=== PATIENT | female | born 1950 | race Caucasian/White ===

== ENCOUNTER 2016-06-22 02:09 | Emergency (ER) | payer BC, MEDICARE, OTHER ==
[~2016-06-22] VITALS: Ht 157.5 cm; Wt 82.6 kg
[2016-06-22] MEDS ORDERED: BYST10TA2 PO (02:24)
[2016-06-22] MEDS ORDERED: HEPARIN DRIP 25,000 UNITS in APPROPRIATE DILUENT 1 EA IV SCH (02:38)
[2016-06-22] MEDS ORDERED: FAMOTIDINE 20 MG TAB PO ONE (02:45)
[2016-06-22] MEDS ORDERED: CLOPIDOGREL 300 MG TAB (PLAVIX) PO ONE (02:45)
[2016-06-22] MEDS ORDERED: NITROGLYCERIN 2% OINT 1 GM *U/D* PKT TOP ONE (02:45)
[2016-06-22] MEDS ORDERED: METOPROLOL TART 25 MG TABLET PO ONE (02:45)
[2016-06-22] MEDS ORDERED: HEPARIN SOD (PORCINE) 5000 UNITS/ML VIAL IV ONE (02:45)
[2016-06-22] MEDS ORDERED: ASPIRIN 81 MG CHEW TABLET PO ONE (02:45)
[2016-06-22] MEDS ORDERED: TENECTEPLASE 50 MG KIT (TNKase)(J3101) IV ONE ×2 (02:45)
[2016-06-22] MEDS: NS 1,000 ML IV SCH ×2 (02:46→02:52)
[2016-06-22 02:48] LABS: BASO % 0.5 % (0.0-1.0); EOS # 0.2 K/mm3 (0.0-0.50); EOS % 2.3 % (0.0-3.0); LARGE UNSTAINED CELL # 0.2 K/mm3 (0.0-0.4); LARGE UNSTAINED CELL % 2.6 % (0.0-4.0); LYMPH # 2.9 K/mm3 (1.5-4.5); LYMPH % 32.1 % (24.0-44.0); MEAN CORPUSCULAR HEMOGLOBIN 27.6 pg (27.0-33.0); MEAN CORPUSCULAR HGB CONC 33.7 g/dl (32.0-36.5); MEAN CORPUSCULAR VOLUME 81.7 fl (80.0-96.0); MONO # 0.7 K/mm3 (0.0-0.8); MONO % 7.7 % (0.0-5.0); NEUTROPHILS % 54.9 % (36.0-66.0); PLATELET COUNT, AUTOMATED 187 k/mm3 (150-450); RED CELL DISTRIBUTION WIDTH 14.1 % (11.5-14.5); WHITE BLOOD COUNT 9.1 K/mm3 (4.0-10.0)
[2016-06-22] MEDS: METOPROLOL 5 MG/5 ML VIAL IV SCH ×2 (02:51→03:02)
[2016-06-22 03:02] VITALS: BP 168/72
[2016-06-22 03:09] LABS: CALCIUM LEVEL 8.8 MG/DL (8.8-10.2); CREATININE FOR GFR 1.23 MG/DL (0.55-1.02); GLOMERULAR FILTRATION RATE 46.2 (>45)
[2016-06-22] MEDS ORDERED: CLOPIDOGREL 300 MG TAB (PLAVIX) ONE (03:18)
[2016-06-22] MEDS ORDERED: METOPROLOL TART 25 MG TABLET ONE (03:18)
[2016-06-22] MEDS ORDERED: HEPARIN SOD (PORCINE) 5000 UNITS/ML VIAL ONE (03:18)
[2016-06-22] MEDS ORDERED: ASPIRIN 81 MG CHEW TABLET ONE (03:18)
[2016-06-22] MEDS ORDERED: FAMOTIDINE 20 MG TAB ONE (03:18)
[2016-06-22] MEDS ORDERED: TENECTEPLASE 50 MG KIT (TNKase)(J3101) ONE (03:18)
[2016-06-22] MEDS ORDERED: HEPARIN 25,000 UNITS/250 ML D5W BAG (100 UNITS/ML) ONE (03:18)
[2016-06-22] MEDS ORDERED: METOPROLOL 5 MG/5 ML VIAL ONE (03:18)
[2016-06-22 03:21] VITALS: BP 173/81
--- NOTE | 2016-06-22 07:46 | REP ---
Clinical: Chest pain . Comparison: 03/26/2015 . Findings: The mediastinum and cardiac silhouette are stable and within normal limits for portable technique. The lung french demonstrate chronic changes without acute consolidation, effusion, or pneumothorax. Skeletal structures are intact. Impression: Chronic changes. No acute cardiopulmonary process. Signed by Manny Strange MD 06/22/2016 07:38 A
--- NOTE | 2016-06-22 10:38 | ECGEPIP ---
Stationary ECG Study [facility] - ED Test Date: 2016-06-22 Pat Name: SUKHJINDER DRIVER Department: Room: - Gender: F Adobe Maker: PerezB: 1950 Requested By: CARIN Galdamez Order Number: [id number] Reading MD: Jake Soto Measurements Intervals [place] Rate: 69 P: 28 IN: 203 QRS: -17 QRSD: 89 T: 66 QT: 379 QTc: 407 Interpretive Statements SINUS RHYTHM MARKED ST ELEVATION, CONSIDER INFERIOR INJURY ACUTE FL CLINICAL CORRELATION ADVISED NO PRIORS Electronically Signed On 06-22-2016 10:38:07 EDT by Jake Soto
== END 2016-06-22 03:33 | disposition short-term general hospital (02) ==
LOC: M ED 03:17
DX: I21.3 ST elevation (STEMI) myocardial infarction of unspecified site (principal); I10 Essential (primary) hypertension; Z79.899 Other long term (current) drug therapy
CPT/HCPCS: 36415; 71010; 80048; 82550; 82553; 85025; 85610; 85730; 93005; 93041; 94760; 96374; 96375; 96376; 99285; J3101

== ENCOUNTER → 2016-07-20 | Outpatient (CLI) | payer BC, MEDICARE, OTHER ==
[~2016-07-20] MED LIST: BYST10TA2 PO
[2016-07-20 09:19] LABS: BASO # 0.1 K/mm3 (0.0-0.2); EOS # 0.3 K/mm3 (0.0-0.50); LARGE UNSTAINED CELL # 0.2 K/mm3 (0.0-0.4); LARGE UNSTAINED CELL % 2.7 % (0.0-4.0); LYMPH # 1.7 K/mm3 (1.5-4.5); LYMPH % 28.4 % (24.0-44.0); MEAN CORPUSCULAR HEMOGLOBIN 28.8 pg (27.0-33.0); MEAN CORPUSCULAR HGB CONC 33.9 g/dl (32.0-36.5); MONO # 0.4 K/mm3 (0.0-0.8); MONO % 5.9 % (0.0-5.0); NEUTROPHILS # 3.4 K/mm3 (1.8-7.7); NEUTROPHILS % 57.1 % (36.0-66.0); PLATELET COUNT, AUTOMATED 169 k/mm3 (150-450); RED CELL DISTRIBUTION WIDTH 15.3 % (11.5-14.5)
[2016-07-20 09:42] LABS: BILIRUBIN,TOTAL 0.7 MG/DL (0.2-1.0); CREATININE FOR GFR 1.37 MG/DL (0.55-1.02); GLOMERULAR FILTRATION RATE 40.8 (>45); POTASSIUM SERUM 4.9 MEQ/L (3.5-5.1)
[2016-07-20 09:43] LABS: ALBUMIN 3.6 GM/DL (3.2-5.2); ALBUMIN/GLOBULIN RATIO 1.13 (1.00-1.93); TOTAL PROTEIN 6.8 GM/DL (6.4-8.2)
== END ==
LOC: M WUC 08:10
PROVIDERS: ATTEND Nurse Practitioner Family
DX: E78.5 Hyperlipidemia, unspecified (principal); I10 Essential (primary) hypertension

== ENCOUNTER 2016-08-09 14:45 | Outpatient (RCR) | payer BC, MEDICARE, OTHER | END 2016-08-25 | LOC: M CR 14:45 | PROVIDERS: ATTEND Nurse Practitioner Family | DX: I25.10 Atherosclerotic heart disease of native coronary artery without angina pectoris (principal) ==

== ENCOUNTER 2016-08-26 09:01 | Outpatient (RCR) | payer BC, MEDICARE, OTHER | END 2016-09-24 | LOC: M CR 09:01 | PROVIDERS: ATTEND Nurse Practitioner Family | DX: I25.10 Atherosclerotic heart disease of native coronary artery without angina pectoris (principal) ==

== ENCOUNTER → 2016-09-15 | Outpatient (CLI) | payer BC, MEDICARE, OTHER ==
[2016-09-15 20:06] LABS: CALCIUM LEVEL 9.7 MG/DL (8.8-10.2); CREATININE FOR GFR 1.33 MG/DL (0.55-1.02); GLOMERULAR FILTRATION RATE 42.2 (>45); POTASSIUM SERUM 4.7 MEQ/L (3.5-5.1)
== END ==
LOC: M WUC 17:08
PROVIDERS: ATTEND Nurse Practitioner Family
DX: C64.2 Malignant neoplasm of left kidney, except renal pelvis (principal)

== ENCOUNTER → 2017-03-07 | Outpatient (CLI) | payer BC, MEDICARE, OTHER ==
--- NOTE | 2017-03-07 17:14 | REP ---
Lumbar spine series: Five views. History: Low back pain for 1 year. Findings: Lumbar vertebral body heights are preserved. Alignment is normal. There is no evidence of spondylolysis or spondylolisthesis. Diffuse degenerative disc disease is noted most pronounced at L3-4 and L4-5. There is osteoarthritic facet narrowing hypertrophy and sclerosis bilaterally L4-5, L5-S1 and to some degree, L3-4. On the frontal radiograph there is a mild levoconvex curvature. Vascular calcifications noted. Sacrum and SI joints are intact. Psoas margins are symmetric. Impression: Degenerative spondylosis changes. Mild levoconvex curvature. Signed by Last Jay MD 03/07/2017 07:52 P
== END ==
LOC: M WUC 16:02
PROVIDERS: ATTEND Nurse Practitioner Family
DX: M54.5 Low back pain (principal)

== ENCOUNTER → 2017-08-27 | Outpatient (CLI) | payer BC, MEDICARE, OTHER ==
[2017-08-27 11:07] LABS: EOS # 0.2 10^3/uL (0.0-0.50); EOS % 4.6 % (0.0-3.0); HEMATOCRIT 43.4 % (36.0-47.0); IMMATURE GRANULOCYTE % 1.2 % (0-3.0); LYMPH # 0.9 10^3/uL (1.5-4.5); LYMPH % 21.2 % (24.0-44.0); MEAN CORPUSCULAR HEMOGLOBIN 26.8 pg (27.0-33.0); MEAN CORPUSCULAR HGB CONC 32.3 g/dl (32.0-36.5); MEAN CORPUSCULAR VOLUME 83.1 fl (80.0-96.0); MONO # 0.4 10^3/uL (0.0-0.8); MONO % 8.5 % (0.0-5.0); NEUTROPHILS # 2.6 10^3/uL (1.8-7.7); NEUTROPHILS % 63.5 % (36.0-66.0); PLATELET COUNT, AUTOMATED 178 10^3/uL (150-450); RED BLOOD COUNT 5.22 10^6/uL (4.00-5.40); RED CELL DISTRIBUTION WIDTH 14.7 % (11.5-14.5); WHITE BLOOD COUNT 4.1 10^3/uL (4.0-10.0)
[2017-08-27 11:29] LABS: ALBUMIN 3.6 GM/DL (3.2-5.2); ALBUMIN/GLOBULIN RATIO 1.09 (1.00-1.93); ALKALINE PHOSPHATASE 63 U/L (45-117); ALT/SGPT 64 U/L (12-78); ANION GAP 8 MEQ/L (8-16); AST/SGOT 116 U/L (7-37); BILIRUBIN,TOTAL 0.5 MG/DL (0.2-1.0); BLOOD UREA NITROGEN 20 MG/DL (7-18); CARBON DIOXIDE LEVEL 25 MEQ/L (21-32); CHLORIDE LEVEL 108 MEQ/L (98-107); CHOLESTEROL LEVEL 233 MG/DL (<200); CHOLESTEROL RISK RATIO 6.852 (<5); CREATININE FOR GFR 1.31 MG/DL (0.55-1.30); FREE T4 0.92 NG/DL (0.76-1.46); GLOMERULAR FILTRATION RATE 42.9 (>45); GLUCOSE, FASTING 102 MG/DL (70-100); HDL CHOLESTEROL 34 MG/DL (>40); IRON (FE) 57 UG/DL (50-170); NON-HDL-C 199 MG/DL; POTASSIUM SERUM 4.6 MEQ/L (3.5-5.1); SODIUM LEVEL 141 MEQ/L (136-145); TOTAL PROTEIN 6.9 GM/DL (6.4-8.2); TRIGLYCERIDES LEVEL 370 MG/DL (<150)
[2017-08-29 10:32] LABS: VITAMIN B12 LEVEL 217 PG/ML (247-911)
== END ==
LOC: M WUC 08:02
DX: I10 Essential (primary) hypertension (principal); E78.4 Other hyperlipidemia; R53.83 Other fatigue
CPT/HCPCS: 83540

== ENCOUNTER → 2017-09-06 | Outpatient (CLI) | payer BC, MEDICARE, OTHER ==
[2017-09-06 15:50] LABS: ALBUMIN 3.1 GM/DL (3.2-5.2); ALKALINE PHOSPHATASE 66 U/L (45-117); ALT/SGPT 67 U/L (12-78); ANION GAP 8 MEQ/L (8-16); AST/SGOT 136 U/L (7-37); BILIRUBIN,DIRECT < 0.1 MG/DL (0.0-0.2); BILIRUBIN,TOTAL 0.4 MG/DL (0.2-1.0); BLOOD UREA NITROGEN 22 MG/DL (7-18); CALCIUM LEVEL 8.6 MG/DL (8.8-10.2); CARBON DIOXIDE LEVEL 24 MEQ/L (21-32); CHLORIDE LEVEL 108 MEQ/L (98-107); CREATININE FOR GFR 1.17 MG/DL (0.55-1.30); GLOMERULAR FILTRATION RATE 48.8 (>45); GLUCOSE, FASTING 166 MG/DL (70-100); POTASSIUM SERUM 3.9 MEQ/L (3.5-5.1); SODIUM LEVEL 140 MEQ/L (136-145); TOTAL PROTEIN 6.2 GM/DL (6.4-8.2)
[2017-09-06 17:09] LABS: ERYTHROCYTE SEDIMENTATION RATE 30 mm/hr (0-30)
[2017-09-09 00:07] LABS: ANTINUCLEAR ANTIBODIES DIRECT Negative (Negative); Lyme Disease IgG/IgM Antibodie <0.91 ISR (0.00-0.90); Lyme Disease IgM Ab Quantitati <0.80 index (0.00-0.79)
== END ==
LOC: M WUC 13:15
DX: R53.83 Other fatigue (principal); E78.4 Other hyperlipidemia

== ENCOUNTER → 2017-09-26 | Outpatient (CLI) | payer BC, MEDICARE, OTHER ==
[2017-09-26 18:38] LABS: CPK CREATINE PHOSPHOKINASE 510 U/L (26-192)
[2017-09-26 18:38] LABS: RHEUMATOID FACTOR QUANT < 10.0 IU/ML (<15.0)
[2017-10-04 00:08] LABS: EBV PCR QUANTITATIVE Negative copies/mL (Negative)
== END ==
LOC: M WUC 15:54
DX: M79.1 Myalgia (principal); M25.50 Pain in unspecified joint
CPT/HCPCS: 82550

== ENCOUNTER → 2017-10-07 | Outpatient (CLI) | payer BC, MEDICARE, OTHER ==
[2017-10-07 16:36] LABS: BASO % 0.5 % (0.0-1.0); EOS # 0.1 10^3/uL (0.0-0.50); EOS % 1.6 % (0.0-3.0); HEMATOCRIT 42.8 % (36.0-47.0); HEMOGLOBIN 13.8 g/dl (12.0-15.5); IMMATURE GRANULOCYTE % 1.3 % (0-3.0); LYMPH # 1.2 10^3/uL (1.5-4.5); LYMPH % 13.8 % (24.0-44.0); MEAN CORPUSCULAR HEMOGLOBIN 26.6 pg (27.0-33.0); MEAN CORPUSCULAR HGB CONC 32.2 g/dl (32.0-36.5); MEAN CORPUSCULAR VOLUME 82.5 fl (80.0-96.0); MONO # 0.7 10^3/uL (0.0-0.8); MONO % 7.8 % (0.0-5.0); NEUTROPHILS # 6.5 10^3/uL (1.8-7.7); PLATELET COUNT, AUTOMATED 163 10^3/uL (150-450); RED BLOOD COUNT 5.19 10^6/uL (4.00-5.40); RED CELL DISTRIBUTION WIDTH 15.6 % (11.5-14.5); WHITE BLOOD COUNT 8.6 10^3/uL (4.0-10.0)
[2017-10-07 17:01] LABS: CPK CREATINE PHOSPHOKINASE 1789 U/L (26-192)
[2017-10-07 17:27] LABS: ERYTHROCYTE SEDIMENTATION RATE 21 mm/hr (0-30)
== END ==
LOC: M WUC 14:44
DX: I25.9 Chronic ischemic heart disease, unspecified (principal)
CPT/HCPCS: 82550

== ENCOUNTER → 2017-10-17 | Outpatient (CLI) | payer BC, MEDICARE, OTHER ==
[2017-10-17 19:56] LABS: GLOMERULAR FILTRATION RATE 52.4 (>45)
== END ==
LOC: M WUC 15:55
DX: M79.1 Myalgia (principal)
CPT/HCPCS: 82565

== ENCOUNTER → 2017-11-08 | Outpatient (REF) | payer BC, MEDICARE ==
[2017-11-08 18:06] LABS: COMPLEMENT C3 134 MG/DL (90-180); COMPLEMENT C4 35.3 MG/DL (10-40); CPK CREATINE PHOSPHOKINASE 421 U/L (26-192); LDH LACTATE DEHYDROGENASE 365 U/L (84-246)
[2017-11-09 09:18] LABS: HEPATITIS B SURFACE ANTIGEN NEGATIVE (NEGATIVE)
[2017-11-09 09:22] LABS: HEPATITIS B SURFACE ANTIBODY POSITIVE (POSITIVE)
[2017-11-09 09:41] LABS: HEPATITIS C VIRUS ABY INDEX 0.1 INDEX (<0.8)
[2017-11-09 11:03] LABS: HIV 1&2 SCREEN CENTAUR NEGATIVE (NEGATIVE)
[2017-11-10 19:47] LABS: APPEARANCE, URINE HAZY (CLEAR); BACTERIA, URINE AUTO 2+ (NEGATIVE); BILIRUBIN, URINE AUTO NEGATIVE (NEGATIVE); BLOOD, URINE BLOOD NEGATIVE (NEGATIVE); CALCIUM OXALATE CRYSTALS SMALL; COLOR, URINE YELLOW (YELLOW); GLUCOSE, URINE (UA) AUTO NEGATIVE (NEGATIVE); KETONE, URINE AUTO TRACE mg/dL (NEGATIVE); LEUKOCYTE ESTERASE, URINE AUTO NEGATIVE (NEGATIVE); MUCUS, URINE SMALL (NEGATIVE); NITRITE, URINE AUTO NEGATIVE (NEGATIVE); PROTEIN, URINE AUTO NEGATIVE (NEGATIVE); RBC, URINE AUTO 0 /HPF (0-3); SPECIFIC GRAVITY URINE AUTO 1.013 (1.002-1.035); SQUAMOUS EPITHELIAL CELL UR AU 3 /HPF (0-6); UROBILINOGEN, URINE AUTO 0.2 mg/dL (0.0-2.0); WBC, URINE AUTO 1 /HPF (0-3)
[2017-11-10 19:51] LABS: TOTAL PROTEIN,RANDOM URINE 13.1 MG/DL (0.0-12.0)
[2017-11-12 00:07] LABS: ALDOLASE 3.3 U/L (3.3-10.3); ANA (HEP2) Positive (.); ANTI CENTROMERE ANTIBODY <0.2 AI (0.0-0.9); ANTI DOUBLE STRAND-DNA AB 1 IU/mL (0-9); ANTI JO-1 ANTIBODIES <0.2 AI (0.0-0.9); ANTI SCLERODERMA ANTIBODIES <0.2 AI (0.0-0.9); HEPATITIS B CORE ANTIBODY IGG Negative (Negative); QUANTIFERON GOLD TB Negative (Negative); RNP ANTIBODY < 0.2 AI (0.0-0.9); SMITHS ANTIBODY < 0.2 AI (0.0-0.9); SSA SJOGRENS A <0.2 AI (0.0-0.9); SSB SJOGRENS B <0.2 AI (0.0-0.9); TB Test (QFT) Antigen 0.08 IU/mL (.); TB Test (QFT) Antigen Minus Ni 0.05 IU/mL (.); TB Test (QFT) Mitogen 7.96 IU/mL (.); TB Test (QFT) Nil 0.03 IU/mL (.)
[2017-11-12 00:07] LABS: CYCLIC CITRULLINATED PEPTIDE 8 units (0-19)
== END ==
LOC: M SFHCLERA 14:23
DX: M60.9 Myositis, unspecified (principal)
CPT/HCPCS: 82550

== ENCOUNTER 2017-12-02 01:06 | Inpatient (IN) | payer BC, MEDICARE, OTHER ==
[2017-12-02] MEDS: NS 1,000 ML IV ×3 (02:42→14:58)
[2017-12-02 02:43] LABS: BASO % 0.6 % (0.0-1.0); EOS # 0.1 10^3/uL (0.0-0.50); EOS % 1.9 % (0.0-3.0); HEMATOCRIT 32.6 % (36.0-47.0); HEMOGLOBIN 10.1 g/dl (12.0-15.5); IMMATURE GRANULOCYTE % 1.9 % (0-3.0); LYMPH # 0.5 10^3/uL (1.5-4.5); MEAN CORPUSCULAR HEMOGLOBIN 26.2 pg (27.0-33.0); MEAN CORPUSCULAR VOLUME 84.5 fl (80.0-96.0); MONO # 0.6 10^3/uL (0.0-0.8); MONO % 11.4 % (0.0-5.0); NEUTROPHILS % 75.2 % (36.0-66.0); PLATELET COUNT, AUTOMATED 147 10^3/uL (150-450); RED BLOOD COUNT 3.86 10^6/uL (4.00-5.40); RED CELL DISTRIBUTION WIDTH 18.6 % (11.5-14.5); WHITE BLOOD COUNT 5.3 10^3/uL (4.0-10.0)
[2017-12-02 03:11] LABS: ALBUMIN 2.8 GM/DL (3.2-5.2); ALBUMIN/GLOBULIN RATIO 1.04 (1.00-1.93); ALKALINE PHOSPHATASE 52 U/L (45-117); ALT/SGPT 32 U/L (12-78); ANION GAP 12 MEQ/L (8-16); AST/SGOT 60 U/L (7-37); BILIRUBIN,DIRECT 0.3 MG/DL (0.0-0.2); BLOOD UREA NITROGEN 32 MG/DL (7-18); CARBON DIOXIDE LEVEL 23 MEQ/L (21-32); CHLORIDE LEVEL 110 MEQ/L (98-107); CPK CREATINE PHOSPHOKINASE 133 U/L (26-192); CREATININE FOR GFR 0.97 MG/DL (0.55-1.30); GLOMERULAR FILTRATION RATE > 60.0 (>45); GLUCOSE, FASTING 111 MG/DL (70-100); POTASSIUM SERUM 3.7 MEQ/L (3.5-5.1); SODIUM LEVEL 145 MEQ/L (136-145); TOTAL PROTEIN 5.5 GM/DL (6.4-8.2); TROPONIN I < 0.02 NG/ML (< 0.10)
[2017-12-02 03:16] LABS: CK-MB VALUE MASS 4.3 NG/ML (<3.6); MB/CK RELATIVE INDEX 3.23 (< OR =4)
[2017-12-02] MEDS ORDERED: POLYVINYL ALCOHOL OPHTH SOLN 15 ML(LIQUITEARS) OU (03:45)
[2017-12-02] MEDS: ENOXAPARIN 40 MG/0.4 ML SYRINGE (J1650) SC (08:52)
[2017-12-02] MEDS: ASPIRIN 81 MG ENTERIC TAB PO (08:52)
[2017-12-02] MEDS ORDERED: CARVedilol 12.5 MG TAB PO (09:00)
[2017-12-02 09:01] LABS: ERYTHROCYTE SEDIMENTATION RATE 64 mm/hr (0-30)
[2017-12-02 12:50] LABS: FERRITIN 1294 NG/ML (8-252)
[2017-12-02 12:58] LABS: VITAMIN B12 LEVEL 370 PG/ML (247-911)
[2017-12-02 12:59] LABS: FOLATE 13.6 NG/ML (>5.4)
[2017-12-02] MEDS ORDERED: VARIBAR PUDDING 40% w/v 230ML TUBE As Ordered (13:38)
[2017-12-02] MEDS ORDERED: VARIBAR NECTAR 40% w/v 240ML SUSP BTL As Ordered (13:38)
[2017-12-02] MEDS ORDERED: E-Z-PAQUE 96% w/w SUSP 176GM BTL As Ordered (13:38)
[2017-12-02] MEDS: methylPREDNISolone INJ 125 MG/2 ML VIAL (J2930) IV (16:30)
[2017-12-02] MEDS: methylPREDNISolone 500 MG, VIAL MATE ADAPTER 1 EACH in D5W 250 ML IV (18:29)
[2017-12-02] MEDS ORDERED: ONDANSETRON 4 MG ORAL DISINTEGRATING TAB (Q0162 PER 1MG) PO (19:30)
[2017-12-02] MEDS: ONDANSETRON 4MG/2ML VIAL (J2405) IV (21:27)
[2017-12-02] MEDS: METOPROLOL TART 50 MG TAB PO (21:27)
[2017-12-03] MEDS: NS 1,000 ML IV (00:59)
[2017-12-03] MEDS: ONDANSETRON 4MG/2ML VIAL (J2405) IV ×4 (03:00→21:00)
[2017-12-03 05:59] LABS: HEMOGLOBIN 10.1 g/dl (12.0-15.5); MEAN CORPUSCULAR HEMOGLOBIN 26.2 pg (27.0-33.0); MEAN CORPUSCULAR HGB CONC 31.6 g/dl (32.0-36.5); MEAN CORPUSCULAR VOLUME 83.1 fl (80.0-96.0); PLATELET COUNT, AUTOMATED 136 10^3/uL (150-450); RED BLOOD COUNT 3.85 10^6/uL (4.00-5.40); RED CELL DISTRIBUTION WIDTH 18.6 % (11.5-14.5); WHITE BLOOD COUNT 2.9 10^3/uL (4.0-10.0)
[2017-12-03 06:13] LABS: ALBUMIN 2.7 GM/DL (3.2-5.2); ALBUMIN/GLOBULIN RATIO 0.77 (1.00-1.93); ALKALINE PHOSPHATASE 63 U/L (45-117); ALT/SGPT 32 U/L (12-78); ANION GAP 12 MEQ/L (8-16); AST/SGOT 61 U/L (7-37); BLOOD UREA NITROGEN 27 MG/DL (7-18); CALCIUM LEVEL 8.9 MG/DL (8.8-10.2); CARBON DIOXIDE LEVEL 19 MEQ/L (21-32); CHLORIDE LEVEL 113 MEQ/L (98-107); CPK CREATINE PHOSPHOKINASE 137 U/L (26-192); CREATININE FOR GFR 0.91 MG/DL (0.55-1.30); GLOMERULAR FILTRATION RATE > 60.0 (>45); GLUCOSE, FASTING 143 MG/DL (70-100); IRON (FE) 40 UG/DL (50-170); PERCENT SATURATION 24.8 % (13.2-45.0); POTASSIUM SERUM 3.9 MEQ/L (3.5-5.1); SODIUM LEVEL 144 MEQ/L (136-145); TOTAL IRON BINDING CAPACITY 161 UG/DL (250-450); TOTAL PROTEIN 6.2 GM/DL (6.4-8.2)
[2017-12-03] MEDS: ENOXAPARIN 40 MG/0.4 ML SYRINGE (J1650) SC (09:00)
[2017-12-03] MEDS: ASPIRIN 81 MG ENTERIC TAB PO (09:48)
[2017-12-03] MEDS: PANTOPRAZOLE 40MG INJ (PROTONIX) (C9113) IV (09:48)
[2017-12-03] MEDS: D5W/0.45% SODIUM CHLORIDE 1,000 ML IV ×2 (09:48→23:56)
[2017-12-03] MEDS: methylPREDNISolone 500 MG, VIAL MATE ADAPTER 1 EACH in D5W 250 ML IV (17:30)
[2017-12-03] MEDS: METOPROLOL TART 50 MG TAB PO (18:14)
[2017-12-03] MEDS: HYDROCORTISONE 2.5% 20GM OINTMENT TOP (22:16)
[2017-12-03] MEDS: BETAMETHASONE VAL 0.1% OINT 15 GM TOP (22:16)
[2017-12-04] MEDS: ONDANSETRON 4MG/2ML VIAL (J2405) IV ×4 (02:45→20:17)
[2017-12-04 06:21] LABS: MEAN CORPUSCULAR HEMOGLOBIN 26.6 pg (27.0-33.0); MEAN CORPUSCULAR VOLUME 85.8 fl (80.0-96.0); PLATELET COUNT, AUTOMATED 115 10^3/uL (150-450); RED BLOOD COUNT 3.38 10^6/uL (4.00-5.40); RED CELL DISTRIBUTION WIDTH 18.6 % (11.5-14.5); WHITE BLOOD COUNT 5.4 10^3/uL (4.0-10.0)
[2017-12-04 06:40] LABS: ALBUMIN 2.5 GM/DL (3.2-5.2); ALBUMIN/GLOBULIN RATIO 0.83 (1.00-1.93); ALKALINE PHOSPHATASE 57 U/L (45-117); ALT/SGPT 36 U/L (12-78); ANION GAP 9 MEQ/L (8-16); AST/SGOT 55 U/L (7-37); BLOOD UREA NITROGEN 25 MG/DL (7-18); CALCIUM LEVEL 8.7 MG/DL (8.8-10.2); CARBON DIOXIDE LEVEL 21 MEQ/L (21-32); CHLORIDE LEVEL 112 MEQ/L (98-107); CPK CREATINE PHOSPHOKINASE 117 U/L (26-192); CREATININE FOR GFR 0.85 MG/DL (0.55-1.30); GLOMERULAR FILTRATION RATE > 60.0 (>45); GLUCOSE, FASTING 169 MG/DL (70-100); POTASSIUM SERUM 3.9 MEQ/L (3.5-5.1); SODIUM LEVEL 142 MEQ/L (136-145); TOTAL PROTEIN 5.5 GM/DL (6.4-8.2)
[2017-12-04 09:06] LABS: ERYTHROCYTE SEDIMENTATION RATE 54 mm/hr (0-30)
[2017-12-04] MEDS: ASPIRIN 81 MG ENTERIC TAB PO (10:16)
[2017-12-04] MEDS: PANTOPRAZOLE 40MG INJ (PROTONIX) (C9113) IV (10:16)
[2017-12-04] MEDS: ENOXAPARIN 40 MG/0.4 ML SYRINGE (J1650) SC (10:17)
[2017-12-04] MEDS: HYDROCORTISONE 2.5% 20GM OINTMENT TOP ×2 (10:18→20:30)
[2017-12-04] MEDS: BETAMETHASONE VAL 0.1% OINT 15 GM TOP ×2 (10:18→20:39)
[2017-12-04] MEDS ORDERED: ISOVUE-370 76% 100ML VIAL (Q9967) As Ordered (15:04)
[2017-12-04] MEDS: GASTROGRAFIN SOLUTION 30ML PO ×2 (15:30→15:59)
[2017-12-04] MEDS: SCOPOLAMINE 1MG TRANSDERMAL PATCH TOP (15:38)
[2017-12-04] MEDS: methylPREDNISolone 500 MG, VIAL MATE ADAPTER 1 EACH in D5W 250 ML IV (17:39)
[2017-12-04] MEDS: D5W/0.45% SODIUM CHLORIDE 1,000 ML IV (18:54)
[2017-12-04] MEDS: PYRIDOSTIGMINE INJ 10 MG/2 ML AMP IV (19:38)
[2017-12-05] MEDS: PYRIDOSTIGMINE INJ 10 MG/2 ML AMP IV ×4 (00:32→18:18)
[2017-12-05] MEDS: ONDANSETRON 4MG/2ML VIAL (J2405) IV ×4 (02:45→19:40)
[2017-12-05 04:44] LABS: HEMATOCRIT 28.2 % (36.0-47.0); HEMOGLOBIN 8.9 g/dl (12.0-15.5); MEAN CORPUSCULAR HEMOGLOBIN 26.5 pg (27.0-33.0); MEAN CORPUSCULAR HGB CONC 31.6 g/dl (32.0-36.5); MEAN CORPUSCULAR VOLUME 83.9 fl (80.0-96.0); PLATELET COUNT, AUTOMATED 109 10^3/uL (150-450); RED BLOOD COUNT 3.36 10^6/uL (4.00-5.40); WHITE BLOOD COUNT 5.4 10^3/uL (4.0-10.0)
[2017-12-05 05:02] LABS: ALBUMIN 2.6 GM/DL (3.2-5.2); ALBUMIN/GLOBULIN RATIO 0.84 (1.00-1.93); ALKALINE PHOSPHATASE 55 U/L (45-117); ALT/SGPT 38 U/L (12-78); ANION GAP 9 MEQ/L (8-16); AST/SGOT 54 U/L (7-37); BLOOD UREA NITROGEN 22 MG/DL (7-18); CALCIUM LEVEL 8.8 MG/DL (8.8-10.2); CARBON DIOXIDE LEVEL 21 MEQ/L (21-32); CHLORIDE LEVEL 110 MEQ/L (98-107); CPK CREATINE PHOSPHOKINASE 91 U/L (26-192); CREATININE FOR GFR 0.84 MG/DL (0.55-1.30); GLOMERULAR FILTRATION RATE > 60.0 (>45); GLUCOSE, FASTING 170 MG/DL (70-100); SODIUM LEVEL 140 MEQ/L (136-145); TOTAL PROTEIN 5.7 GM/DL (6.4-8.2)
[2017-12-05] MEDS: ENOXAPARIN 40 MG/0.4 ML SYRINGE (J1650) SC (09:00)
[2017-12-05] MEDS: predniSONE 20 MG TAB PO ×3 (09:00→11:55)
[2017-12-05] MEDS: ASPIRIN 81 MG ENTERIC TAB PO (09:00)
[2017-12-05] MEDS: D5W/0.45% SODIUM CHLORIDE 1,000 ML IV ×2 (09:34→22:55)
[2017-12-05] MEDS: PANTOPRAZOLE 40MG INJ (PROTONIX) (C9113) IV (09:35)
[2017-12-05] MEDS: BETAMETHASONE VAL 0.1% OINT 15 GM TOP ×2 (09:36→20:00)
[2017-12-05] MEDS: HYDROCORTISONE 2.5% 20GM OINTMENT TOP ×2 (09:36→20:01)
[2017-12-05] MEDS: methylPREDNISolone INJ 40 MG/1 ML VIAL (J2920) IV (12:22)
[2017-12-06 00:56] LABS: FIBRINOGEN 283 MG/DL (221-452)
[2017-12-06 01:10] LABS: ERYTHROCYTE SEDIMENTATION RATE 49 mm/hr (0-30)
[2017-12-06 01:15] LABS: C REACTIVE PROTEIN QUANTITATIV < 0.30 MG/DL (0.00-0.30); CHOLESTEROL LEVEL 194 MG/DL (<200); CHOLESTEROL RISK RATIO 7.185 (<5); FERRITIN 1798 NG/ML (8-252); HDL CHOLESTEROL 27 MG/DL (>40); LDL CHOLESTEROL 106 MG/DL (<100); NON-HDL-C 167 MG/DL; TRIGLYCERIDES LEVEL 303 MG/DL (<150)
[2017-12-06 05:24] LABS: HEMATOCRIT 28.3 % (36.0-47.0); HEMOGLOBIN 8.7 g/dl (12.0-15.5); MEAN CORPUSCULAR HEMOGLOBIN 26.2 pg (27.0-33.0); MEAN CORPUSCULAR HGB CONC 30.7 g/dl (32.0-36.5); MEAN CORPUSCULAR VOLUME 85.2 fl (80.0-96.0); PLATELET COUNT, AUTOMATED 110 10^3/uL (150-450); RED BLOOD COUNT 3.32 10^6/uL (4.00-5.40); RED CELL DISTRIBUTION WIDTH 18.7 % (11.5-14.5); WHITE BLOOD COUNT 5.9 10^3/uL (4.0-10.0)
[2017-12-06 06:01] LABS: ESTIMATED AVERAGE GLUCOSE 94 MG/DL (60-110); HEMOGLOBIN A1c 4.9 %
[2017-12-06 06:03] LABS: ALBUMIN 2.4 GM/DL (3.2-5.2); ALKALINE PHOSPHATASE 52 U/L (45-117); ALT/SGPT 44 U/L (12-78); ANION GAP 12 MEQ/L (8-16); AST/SGOT 53 U/L (7-37); BILIRUBIN,TOTAL 0.8 MG/DL (0.2-1.0); BLOOD UREA NITROGEN 18 MG/DL (7-18); CALCIUM LEVEL 8.3 MG/DL (8.8-10.2); CARBON DIOXIDE LEVEL 18 MEQ/L (21-32); CHLORIDE LEVEL 109 MEQ/L (98-107); CPK CREATINE PHOSPHOKINASE 66 U/L (26-192); CREATININE FOR GFR 0.94 MG/DL (0.55-1.30); GLOMERULAR FILTRATION RATE > 60.0 (>45); GLUCOSE, FASTING 115 MG/DL (70-100); SODIUM LEVEL 139 MEQ/L (136-145); TOTAL PROTEIN 5.4 GM/DL (6.4-8.2)
[2017-12-06] MEDS ORDERED: LIDOCAINE 1% MDV 20ML VIAL As Ordered ×2 (07:29→15:37)
[2017-12-06] MEDS ORDERED: fentaNYL 100 MCG/2 ML INJECTION (J3010) As Ordered (07:29)
[2017-12-06] MEDS ORDERED: POTASSIUM CHLORIDE 10 MEQ SR TABLET PO (08:00)
[2017-12-06] MEDS: fentaNYL 100 MCG/2 ML INJECTION (J3010) IV (08:15)
[2017-12-06] MEDS: LIDOCAINE 1% MDV 20ML VIAL SC (08:15)
[2017-12-06] MEDS ORDERED: KETOROLAC 30 MG/ML VIAL (J1885) IV (08:15)
[2017-12-06] MEDS ORDERED: MORPHINE 4 MG/ML 1ML VIAL/SYRINGE (J2270) IV (08:15)
[2017-12-06] MEDS: ENOXAPARIN 40 MG/0.4 ML SYRINGE (J1650) SC (09:00)
[2017-12-06] MEDS: ASPIRIN 81 MG ENTERIC TAB PO (09:00)
[2017-12-06] MEDS ORDERED: methylPREDNISolone INJ 125 MG/2 ML VIAL (J2930) IV (09:00)
[2017-12-06] MEDS ORDERED: IMMUNE GLOBULIN 10% 10GM 100ML 30 GM in APPROPRIATE DILUENT 1 EA IV (09:00)
[2017-12-06] MEDS: KCL 10MEQ/100ML SWI (KRUN) 10 MEQ in APPROPRIATE DILUENT 1 EA IV ×4 (09:23→17:07)
[2017-12-06] MEDS: KCL 40MEQ IN D5/0.45NS 1000ML 1,000 ML IV (09:23)
[2017-12-06] MEDS: BETAMETHASONE VAL 0.1% OINT 15 GM TOP ×2 (09:24→20:16)
[2017-12-06] MEDS: HYDROCORTISONE 2.5% 20GM OINTMENT TOP ×2 (09:24→20:15)
[2017-12-06 10:00] LABS: MAGNESIUM LEVEL 2.1 MG/DL (1.8-2.4)
[2017-12-06 11:39] LABS: SLIDE REVIEW Report; SOURCE PERIPHERAL SMEAR
[2017-12-06 12:09] LABS: REASON FOR REVIEW PLATELET MORPHOLOGY
[2017-12-06] MEDS: methylPREDNISolone 1,000 MG, VIAL MATE ADAPTER 1 EACH in D5W 250 ML IV (14:15)
[2017-12-06] MEDS: IMMUNE GLOBULIN 10% 10GM 100ML 10 GM in APPROPRIATE DILUENT 1 EA IV (17:25)
[2017-12-06] MEDS: SODIUM CHLORIDE 0.9% INJ 10 ML SYR IV (18:42)
[2017-12-06] MEDS: IMMUNE GLOBULIN 10% 20GM 200ML 20 GM in APPROPRIATE DILUENT 1 EA IV (19:35)
[2017-12-07] MEDS: KCL 40MEQ IN D5/0.45NS 1000ML 1,000 ML IV ×2 (00:40→09:29)
[2017-12-07] MEDS: SODIUM CHLORIDE 0.9% INJ 10 ML SYR IV ×2 (05:30→18:16)
[2017-12-07 05:43] LABS: HEMATOCRIT 26.8 % (36.0-47.0); HEMOGLOBIN 8.4 g/dl (12.0-15.5); MEAN CORPUSCULAR HEMOGLOBIN 26.5 pg (27.0-33.0); MEAN CORPUSCULAR HGB CONC 31.3 g/dl (32.0-36.5); MEAN CORPUSCULAR VOLUME 84.5 fl (80.0-96.0); PLATELET COUNT, AUTOMATED 102 10^3/uL (150-450); RED BLOOD COUNT 3.17 10^6/uL (4.00-5.40); RED CELL DISTRIBUTION WIDTH 18.5 % (11.5-14.5); WHITE BLOOD COUNT 3.6 10^3/uL (4.0-10.0)
[2017-12-07 06:19] LABS: ALBUMIN 2.4 GM/DL (3.2-5.2); ALBUMIN/GLOBULIN RATIO 0.75 (1.00-1.93); ALKALINE PHOSPHATASE 52 U/L (45-117); ALT/SGPT 55 U/L (12-78); ANION GAP 8 MEQ/L (8-16); AST/SGOT 60 U/L (7-37); BILIRUBIN,TOTAL 0.8 MG/DL (0.2-1.0); BLOOD UREA NITROGEN 12 MG/DL (7-18); CALCIUM LEVEL 8.1 MG/DL (8.8-10.2); CARBON DIOXIDE LEVEL 21 MEQ/L (21-32); CHLORIDE LEVEL 110 MEQ/L (98-107); CPK CREATINE PHOSPHOKINASE 58 U/L (26-192); GLOMERULAR FILTRATION RATE > 60.0 (>45); GLUCOSE, FASTING 116 MG/DL (70-100); POTASSIUM SERUM 4.2 MEQ/L (3.5-5.1); SODIUM LEVEL 139 MEQ/L (136-145); TOTAL PROTEIN 5.6 GM/DL (6.4-8.2)
[2017-12-07 07:59] LABS: LDH LACTATE DEHYDROGENASE 322 U/L (84-246)
[2017-12-07 08:45] LABS: INR 1.25; PROTHROMBIN TIME 15.9 SECONDS (12.1-14.4)
[2017-12-07 08:46] LABS: FIBRINOGEN 229 MG/DL (221-452); PARTIAL THROMBOPLASTIN TIME 28.1 SECONDS (25.4-37.6)
[2017-12-07] MEDS: ENOXAPARIN 40 MG/0.4 ML SYRINGE (J1650) SC (09:00)
[2017-12-07] MEDS: ASPIRIN 81 MG ENTERIC TAB PO (09:00)
[2017-12-07] MEDS: SCOPOLAMINE 1MG TRANSDERMAL PATCH TOP (09:00)
[2017-12-07] MEDS: IMMUNE GLOBULIN 10% 10GM 100ML 10 GM in APPROPRIATE DILUENT 1 EA IV (09:32)
[2017-12-07] MEDS: BETAMETHASONE VAL 0.1% OINT 15 GM TOP ×2 (09:33→21:03)
[2017-12-07] MEDS: HYDROCORTISONE 2.5% 20GM OINTMENT TOP ×2 (09:33→21:02)
[2017-12-07] MEDS: methylPREDNISolone INJ 40 MG/1 ML VIAL (J2920) IV ×2 (09:46→21:02)
[2017-12-07 11:01] LABS: RETIC HEMOGLOBIN EQUIVALENT 33.6 pg (24-36); RETICULOCYTE # 89.4 10^9/L (17-77); RETICULOCYTE % 2.8 % (0.5-1.5)
[2017-12-07] MEDS: IMMUNE GLOBULIN 10% 20GM 200ML 20 GM in APPROPRIATE DILUENT 1 EA IV (11:14)
[2017-12-07] MEDS: ONDANSETRON 4MG/2ML VIAL (J2405) IV (18:16)
[2017-12-08 06:25] LABS: HEMATOCRIT 26.5 % (36.0-47.0); HEMOGLOBIN 8.4 g/dl (12.0-15.5); MEAN CORPUSCULAR HEMOGLOBIN 26.8 pg (27.0-33.0); MEAN CORPUSCULAR HGB CONC 31.7 g/dl (32.0-36.5); MEAN CORPUSCULAR VOLUME 84.7 fl (80.0-96.0); RED BLOOD COUNT 3.13 10^6/uL (4.00-5.40); RED CELL DISTRIBUTION WIDTH 18.7 % (11.5-14.5)
[2017-12-08] MEDS: SODIUM CHLORIDE 0.9% INJ 10 ML SYR IV ×2 (06:27→17:29)
[2017-12-08 06:54] LABS: C REACTIVE PROTEIN QUANTITATIV < 0.30 MG/DL (0.00-0.30)
[2017-12-08 06:56] LABS: IMMATURE PLATELET FRACTION % 7.8 % (0.0-9.6); PLATELET COUNT, AUTOMATED 88 10^3/uL (150-450)
[2017-12-08 06:57] LABS: ALBUMIN 2.3 GM/DL (3.2-5.2); ALBUMIN/GLOBULIN RATIO 0.58 (1.00-1.93); ALKALINE PHOSPHATASE 54 U/L (45-117); ALT/SGPT 49 U/L (12-78); ANION GAP 6 MEQ/L (8-16); AST/SGOT 45 U/L (7-37); BILIRUBIN,TOTAL 0.8 MG/DL (0.2-1.0); BLOOD UREA NITROGEN 13 MG/DL (7-18); CALCIUM LEVEL 8.1 MG/DL (8.8-10.2); CARBON DIOXIDE LEVEL 26 MEQ/L (21-32); CHLORIDE LEVEL 105 MEQ/L (98-107); CPK CREATINE PHOSPHOKINASE 50 U/L (26-192); CREATININE FOR GFR 0.73 MG/DL (0.55-1.30); GLOMERULAR FILTRATION RATE > 60.0 (>45); GLUCOSE, FASTING 114 MG/DL (70-100); POTASSIUM SERUM 3.9 MEQ/L (3.5-5.1); SODIUM LEVEL 137 MEQ/L (136-145); TOTAL PROTEIN 6.3 GM/DL (6.4-8.2)
[2017-12-08] MEDS: ASPIRIN 81 MG ENTERIC TAB PO (07:40)
[2017-12-08] MEDS: ENOXAPARIN 40 MG/0.4 ML SYRINGE (J1650) SC (07:41)
[2017-12-08] MEDS: LACTOBACILLUS RHAMNOSUS POWDER PACKET(CULTURELLE) PO (09:00)
[2017-12-08] MEDS: BETAMETHASONE VAL 0.1% OINT 15 GM TOP ×2 (09:16→22:13)
[2017-12-08] MEDS: methylPREDNISolone INJ 40 MG/1 ML VIAL (J2920) IV ×2 (09:16→22:12)
[2017-12-08] MEDS: HYDROCORTISONE 2.5% 20GM OINTMENT TOP ×2 (09:16→22:14)
[2017-12-08] MEDS: IMMUNE GLOBULIN 10% 10GM 100ML 10 GM in APPROPRIATE DILUENT 1 EA IV (09:18)
[2017-12-08] MEDS: IMMUNE GLOBULIN 10% 20GM 200ML 20 GM in APPROPRIATE DILUENT 1 EA IV (10:30)
[2017-12-08] MEDS: FUROSEMIDE 40 MG/4 ML VIAL (J1940) IV (12:00)
[2017-12-08] MEDS: FAT EMULSION IV 20% 500 ML IV (17:30)
[2017-12-08] MEDS: AMINO AC/ELECTROLYTE/DEX/CALC 2,000 ML IV (17:30)
[2017-12-08 17:42] LABS: BEDSIDE GLUCOSE 114 MG/DL (80-115)
[2017-12-08] MEDS: HumaLOG INSULIN (NovoLOG) PER UNIT SC (18:15)
[2017-12-09 00:25] LABS: BEDSIDE GLUCOSE 165 MG/DL (80-115)
[2017-12-09] MEDS: HumaLOG INSULIN (NovoLOG) PER UNIT SC ×4 (00:34→21:37)
[2017-12-09] MEDS: SODIUM CHLORIDE 0.9% INJ 10 ML SYR IV ×3 (06:00→17:46)
[2017-12-09 06:42] LABS: HEMATOCRIT 28.3 % (36.0-47.0); HEMOGLOBIN 9.1 g/dl (12.0-15.5); MEAN CORPUSCULAR HEMOGLOBIN 26.8 pg (27.0-33.0); MEAN CORPUSCULAR HGB CONC 32.2 g/dl (32.0-36.5); MEAN CORPUSCULAR VOLUME 83.5 fl (80.0-96.0); PLATELET COUNT, AUTOMATED 106 10^3/uL (150-450); RED BLOOD COUNT 3.39 10^6/uL (4.00-5.40); RED CELL DISTRIBUTION WIDTH 18.6 % (11.5-14.5); WHITE BLOOD COUNT 5.6 10^3/uL (4.0-10.0)
[2017-12-09 06:52] LABS: FIBRINOGEN 237 MG/DL (221-452)
[2017-12-09 06:57] LABS: ERYTHROCYTE SEDIMENTATION RATE 63 mm/hr (0-30)
[2017-12-09 07:05] LABS: C REACTIVE PROTEIN QUANTITATIV 0.31 MG/DL (0.00-0.30)
[2017-12-09 07:08] LABS: FERRITIN 1726 NG/ML (8-252)
[2017-12-09 07:13] LABS: ALBUMIN 2.5 GM/DL (3.2-5.2); ALBUMIN/GLOBULIN RATIO 0.48 (1.00-1.93); ALKALINE PHOSPHATASE 50 U/L (45-117); ALT/SGPT 48 U/L (12-78); ANION GAP 11 MEQ/L (8-16); AST/SGOT 43 U/L (7-37); BILIRUBIN,TOTAL 0.8 MG/DL (0.2-1.0); BLOOD UREA NITROGEN 20 MG/DL (7-18); CALCIUM LEVEL 8.5 MG/DL (8.8-10.2); CARBON DIOXIDE LEVEL 24 MEQ/L (21-32); CHLORIDE LEVEL 99 MEQ/L (98-107); CPK CREATINE PHOSPHOKINASE 65 U/L (26-192); CREATININE FOR GFR 0.98 MG/DL (0.55-1.30); GLOMERULAR FILTRATION RATE 59.9 (>45); GLUCOSE, FASTING 171 MG/DL (70-100); POTASSIUM SERUM 3.5 MEQ/L (3.5-5.1); SODIUM LEVEL 134 MEQ/L (136-145); TOTAL PROTEIN 7.7 GM/DL (6.4-8.2)
[2017-12-09] MEDS: LACTOBACILLUS RHAMNOSUS POWDER PACKET(CULTURELLE) PO (09:00)
[2017-12-09] MEDS: ENOXAPARIN 40 MG/0.4 ML SYRINGE (J1650) SC (09:00)
[2017-12-09] MEDS: ASPIRIN 81 MG ENTERIC TAB PO (09:00)
[2017-12-09] MEDS: ONDANSETRON 4MG/2ML VIAL (J2405) IV ×2 (09:37→18:55)
[2017-12-09 10:16] LABS: ACETYLCHOLINE RCPTOR BLOCK AB 21 % (0-25); ACETYLCHOLINE RCPTOR MODULATIN <12 % (0-20); ALDOLASE 5.5 U/L (3.3-10.3); STRIATIONAL ANTIBODIES Negative (Neg:<1:40); VGCC ANTIBODY Negative (Negative)
[2017-12-09 10:16] LABS: ACETYLCHOLINE RCPTOR BINDING A < 0.03 nmol/L (0.00-0.24)
[2017-12-09] MEDS: methylPREDNISolone INJ 40 MG/1 ML VIAL (J2920) IV ×2 (10:51→20:08)
[2017-12-09] MEDS: BETAMETHASONE VAL 0.1% OINT 15 GM TOP ×2 (10:51→21:35)
[2017-12-09] MEDS: HYDROCORTISONE 2.5% 20GM OINTMENT TOP ×2 (10:51→21:35)
[2017-12-09] MEDS: IMMUNE GLOBULIN 10% 10GM 100ML 10 GM in APPROPRIATE DILUENT 1 EA IV (10:53)
[2017-12-09] MEDS: KCL 10MEQ/100ML SWI (KRUN) 10 MEQ in APPROPRIATE DILUENT 1 EA IV ×2 (11:00→15:28)
[2017-12-09 12:03] LABS: BEDSIDE GLUCOSE 148 MG/DL (80-115)
[2017-12-09] MEDS: IMMUNE GLOBULIN 10% 20GM 200ML 20 GM in APPROPRIATE DILUENT 1 EA IV (12:50)
[2017-12-09 14:14] LABS: HAPTOGLOBIN 113 mg/dL (34-200)
[2017-12-09] MEDS ORDERED: KCL 10MEQ IN STERILE WATER 100ML As Ordered (16:28)
[2017-12-09 18:53] LABS: BEDSIDE GLUCOSE 156 MG/DL (80-115)
[2017-12-09] MEDS: AMINO AC/ELECTROLYTE/DEX/CALC 2,000 ML IV (20:08)
[2017-12-09] MEDS: FAT EMULSION IV 20% 500 ML IV (20:08)
[2017-12-09] MEDS: ACETAMINOPH W/CODEINE #3 TAB UD PO (20:09)
[2017-12-10] MEDS: HumaLOG INSULIN (NovoLOG) PER UNIT SC ×4 (00:08→17:54)
[2017-12-10] MEDS: SODIUM CHLORIDE 0.9% INJ 10 ML SYR IV ×2 (05:38→17:55)
[2017-12-10 06:22] LABS: FIBRINOGEN 220 MG/DL (221-452)
[2017-12-10 06:41] LABS: C REACTIVE PROTEIN QUANTITATIV < 0.30 MG/DL (0.00-0.30); FERRITIN 1802 NG/ML (8-252)
[2017-12-10 06:59] LABS: BEDSIDE GLUCOSE 141 MG/DL (80-115)
[2017-12-10 07:15] LABS: ANTI-HMGCR AB IgG <20 Units (<20)
[2017-12-10 07:31] LABS: ERYTHROCYTE SEDIMENTATION RATE 64 mm/hr (0-30)
[2017-12-10] MEDS: ASPIRIN 81 MG ENTERIC TAB PO (07:53)
[2017-12-10] MEDS: LACTOBACILLUS RHAMNOSUS POWDER PACKET(CULTURELLE) PO (07:53)
[2017-12-10 08:16] LABS: HEMATOCRIT 26.8 % (36.0-47.0); HEMOGLOBIN 8.8 g/dl (12.0-15.5); MEAN CORPUSCULAR HEMOGLOBIN 27.4 pg (27.0-33.0); MEAN CORPUSCULAR HGB CONC 32.8 g/dl (32.0-36.5); MEAN CORPUSCULAR VOLUME 83.5 fl (80.0-96.0); PLATELET COUNT, AUTOMATED 132 10^3/uL (150-450); RED BLOOD COUNT 3.21 10^6/uL (4.00-5.40); RED CELL DISTRIBUTION WIDTH 18.6 % (11.5-14.5)
[2017-12-10 08:20] LABS: ADD MANUAL DIFFER YES; DIFF SLIDE NUMBER 44; POS COUNT POS FLAG; POSITIVE MORPH POS FLAG
[2017-12-10 08:28] LABS: ALBUMIN 2.3 GM/DL (3.2-5.2); ALBUMIN/GLOBULIN RATIO 0.44 (1.00-1.93); ALKALINE PHOSPHATASE 45 U/L (45-117); ALT/SGPT 42 U/L (12-78); ANION GAP 11 MEQ/L (8-16); AST/SGOT 44 U/L (7-37); BILIRUBIN,TOTAL 0.6 MG/DL (0.2-1.0); BLOOD UREA NITROGEN 23 MG/DL (7-18); CALCIUM LEVEL 8.7 MG/DL (8.8-10.2); CARBON DIOXIDE LEVEL 25 MEQ/L (21-32); CHLORIDE LEVEL 99 MEQ/L (98-107); GLOMERULAR FILTRATION RATE > 60.0 (>45); GLUCOSE, FASTING 119 MG/DL (70-100); MAGNESIUM LEVEL 2.1 MG/DL (1.8-2.4); POTASSIUM SERUM 3.4 MEQ/L (3.5-5.1); SODIUM LEVEL 135 MEQ/L (136-145); TOTAL PROTEIN 7.5 GM/DL (6.4-8.2)
[2017-12-10 09:23] LABS: ATYPICAL LYMPH 1 % (0-5); BANDS 1 % (< 11); EOSINOPHILS 1 % (0-5); LYMPHOCYTES 13 % (16-52); METAMYELOCYTES 2 % (0-0); MONOCYTES 4 % (0-8); NEUTROPHILS 78 % (35-75)
[2017-12-10 09:24] LABS: PLATELET ESTIMATE DECREASED (NORMAL)
[2017-12-10] MEDS: ONDANSETRON 4MG/2ML VIAL (J2405) IV ×2 (10:17→16:06)
[2017-12-10] MEDS: hydrALAZINE INJ 20 MG/ML VIAL IV (10:17)
[2017-12-10] MEDS: methylPREDNISolone INJ 40 MG/1 ML VIAL (J2920) IV ×2 (10:17→21:00)
[2017-12-10] MEDS: SCOPOLAMINE 1MG TRANSDERMAL PATCH TOP (10:18)
[2017-12-10] MEDS: HYDROCORTISONE 2.5% 20GM OINTMENT TOP ×2 (10:18→21:29)
[2017-12-10] MEDS: BETAMETHASONE VAL 0.1% OINT 15 GM TOP ×2 (10:18→21:00)
[2017-12-10] MEDS: ENOXAPARIN 40 MG/0.4 ML SYRINGE (J1650) SC (10:19)
[2017-12-10] MEDS: IMMUNE GLOBULIN 10% 10GM 100ML 10 GM in APPROPRIATE DILUENT 1 EA IV (10:35)
[2017-12-10 12:18] LABS: BEDSIDE GLUCOSE 168 MG/DL (80-115)
[2017-12-10] MEDS: IMMUNE GLOBULIN 10% 20GM 200ML 20 GM in APPROPRIATE DILUENT 1 EA IV (12:19)
[2017-12-10] MEDS: LABETALOL HCL 100 MG/20 ML VIAL IV ×2 (15:57→21:29)
[2017-12-10] MEDS: CALC IV (17:28)
[2017-12-10] MEDS: FAT EMULSION IV 20% 500 ML IV (17:28)
[2017-12-10] MEDS: DEX IV (17:28)
[2017-12-10] MEDS: POTASSIUM CHLORIDE IV (17:28)
[2017-12-10] MEDS: ELECTROLYTE IV (17:28)
[2017-12-10] MEDS: AMINO AC IV (17:28)
[2017-12-10 17:49] LABS: BEDSIDE GLUCOSE 202 MG/DL (80-115)
[2017-12-10 23:57] LABS: BEDSIDE GLUCOSE 181 MG/DL (80-115)
[2017-12-11] MEDS: HumaLOG INSULIN (NovoLOG) PER UNIT SC ×4 (00:26→18:34)
[2017-12-11] MEDS: METOCLOPRAMIDE INJ 10MG/2ML VIAL (J2765) IV ×3 (03:38→15:51)
[2017-12-11] MEDS: LABETALOL HCL 100 MG/20 ML VIAL IV ×4 (03:38→21:27)
[2017-12-11] MEDS: SODIUM CHLORIDE 0.9% INJ 10 ML SYR IV ×4 (03:39→21:27)
[2017-12-11 05:17] LABS: HEMATOCRIT 26.9 % (36.0-47.0); MEAN CORPUSCULAR HEMOGLOBIN 31.6 pg (27.0-33.0); MEAN CORPUSCULAR HGB CONC 33.5 g/dl (32.0-36.5); MEAN CORPUSCULAR VOLUME 94.4 fl (80.0-96.0); PLATELET COUNT, AUTOMATED 119 10^3/uL (150-450); RED BLOOD COUNT 2.85 10^6/uL (4.00-5.40); RED CELL DISTRIBUTION WIDTH 19.4 % (11.5-14.5); WHITE BLOOD COUNT 7.1 10^3/uL (4.0-10.0)
[2017-12-11 05:20] LABS: ADD MANUAL DIFFER YES; DIFF SLIDE NUMBER 69; POS COUNT POS FLAG; POSITIVE MORPH POS FLAG
[2017-12-11 05:30] LABS: FIBRINOGEN 200 MG/DL (221-452)
[2017-12-11 05:32] LABS: BEDSIDE GLUCOSE 180 MG/DL (80-115)
[2017-12-11 05:51] LABS: BANDS 1 % (< 11); LYMPHOCYTES 10 % (16-52); METAMYELOCYTES 2 % (0-0); MONOCYTES 5 % (0-8); MYELOCYTES 3 % (0-0); NEUTROPHILS 79 % (35-75); PLATELET ESTIMATE DECREASED (NORMAL)
[2017-12-11 05:52] LABS: ANISOCYTOSIS 2+
[2017-12-11 06:51] LABS: ERYTHROCYTE SEDIMENTATION RATE 71 mm/hr (0-30)
[2017-12-11 07:00] LABS: ALBUMIN 2.3 GM/DL (3.2-5.2); ALKALINE PHOSPHATASE 46 U/L (45-117); ALT/SGPT 46 U/L (12-78); ANION GAP 11 MEQ/L (8-16); AST/SGOT 51 U/L (7-37); BILIRUBIN,TOTAL 0.6 MG/DL (0.2-1.0); BLOOD UREA NITROGEN 27 MG/DL (7-18); C REACTIVE PROTEIN QUANTITATIV 0.35 MG/DL (0.00-0.30); CALCIUM LEVEL 8.5 MG/DL (8.8-10.2); CARBON DIOXIDE LEVEL 21 MEQ/L (21-32); CHLORIDE LEVEL 99 MEQ/L (98-107); FERRITIN 1936 NG/ML (8-252); GLOMERULAR FILTRATION RATE > 60.0 (>45); GLUCOSE, FASTING 152 MG/DL (70-100); MAGNESIUM LEVEL 2.2 MG/DL (1.8-2.4); POTASSIUM SERUM 3.9 MEQ/L (3.5-5.1); SODIUM LEVEL 131 MEQ/L (136-145)
[2017-12-11] MEDS: LACTOBACILLUS RHAMNOSUS POWDER PACKET(CULTURELLE) PO (08:27)
[2017-12-11] MEDS: ASPIRIN 81 MG ENTERIC TAB PO (08:27)
[2017-12-11] MEDS: ENOXAPARIN 40 MG/0.4 ML SYRINGE (J1650) SC (09:00)
[2017-12-11] MEDS: methylPREDNISolone INJ 40 MG/1 ML VIAL (J2920) IV ×2 (09:08→21:27)
[2017-12-11] MEDS: HYDROCORTISONE 2.5% 20GM OINTMENT TOP ×2 (09:08→21:28)
[2017-12-11] MEDS: BETAMETHASONE VAL 0.1% OINT 15 GM TOP ×2 (09:09→21:28)
[2017-12-11 11:45] LABS: BEDSIDE GLUCOSE 160 MG/DL (80-115)
[2017-12-11] MEDS: hydrALAZINE INJ 20 MG/ML VIAL IV (12:23)
[2017-12-11 17:55] LABS: BEDSIDE GLUCOSE 179 MG/DL (80-115)
[2017-12-11] MEDS: AMINO AC/ELECTROLYTE/DEX/CALC 2,000 ML IV (18:34)
[2017-12-11] MEDS: FAT EMULSION IV 20% 500 ML IV (18:34)
[2017-12-12 00:18] LABS: BEDSIDE GLUCOSE 189 MG/DL (80-115)
[2017-12-12] MEDS: METOCLOPRAMIDE INJ 10MG/2ML VIAL (J2765) IV ×2 (00:22→08:12)
[2017-12-12] MEDS: SODIUM CHLORIDE 0.9% INJ 10 ML SYR IV ×3 (00:23→08:13)
[2017-12-12] MEDS: HumaLOG INSULIN (NovoLOG) PER UNIT SC ×3 (00:24→12:00)
[2017-12-12] MEDS: LABETALOL HCL 100 MG/20 ML VIAL IV ×4 (02:00→21:46)
[2017-12-12 05:39] LABS: BEDSIDE GLUCOSE 184 MG/DL (80-115)
[2017-12-12 06:00] LABS: HEMATOCRIT 27.5 % (36.0-47.0); MEAN CORPUSCULAR HEMOGLOBIN 27.4 pg (27.0-33.0); MEAN CORPUSCULAR HGB CONC 32.7 g/dl (32.0-36.5); MEAN CORPUSCULAR VOLUME 83.6 fl (80.0-96.0); PLATELET COUNT, AUTOMATED 123 10^3/uL (150-450); RED BLOOD COUNT 3.29 10^6/uL (4.00-5.40)
[2017-12-12 06:32] LABS: FIBRINOGEN 240 MG/DL (221-452)
[2017-12-12 06:47] LABS: ADD MANUAL DIFFER YES; DIFF SLIDE NUMBER 77; POS COUNT POS FLAG; POSITIVE MORPH POS FLAG
[2017-12-12 06:52] LABS: ALBUMIN 2.3 GM/DL (3.2-5.2); ALBUMIN/GLOBULIN RATIO 0.43 (1.00-1.93); ALKALINE PHOSPHATASE 54 U/L (45-117); ALT/SGPT 49 U/L (12-78); ANION GAP 15 MEQ/L (8-16); AST/SGOT 49 U/L (7-37); BILIRUBIN,TOTAL 0.7 MG/DL (0.2-1.0); BLOOD UREA NITROGEN 28 MG/DL (7-18); C REACTIVE PROTEIN QUANTITATIV < 0.30 MG/DL (0.00-0.30); CALCIUM LEVEL 8.7 MG/DL (8.8-10.2); CARBON DIOXIDE LEVEL 20 MEQ/L (21-32); CHLORIDE LEVEL 97 MEQ/L (98-107); CREATININE FOR GFR 0.98 MG/DL (0.55-1.30); FERRITIN 2144 NG/ML (8-252); GLOMERULAR FILTRATION RATE 59.9 (>45); GLUCOSE, FASTING 156 MG/DL (70-100); MAGNESIUM LEVEL 2.3 MG/DL (1.8-2.4); POTASSIUM SERUM 4.3 MEQ/L (3.5-5.1); SODIUM LEVEL 132 MEQ/L (136-145); TOTAL PROTEIN 7.6 GM/DL (6.4-8.2)
[2017-12-12 07:43] LABS: ANISOCYTOSIS 2+; BANDS 2 % (< 11); EOSINOPHILS 1 % (0-5); LYMPHOCYTES 5 % (16-52); METAMYELOCYTES 5 % (0-0); MONOCYTES 9 % (0-8); MYELOCYTES 2 % (0-0); NEUTROPHILS 76 % (35-75); PLATELET ESTIMATE DECREASED (NORMAL)
[2017-12-12] MEDS: hydrALAZINE INJ 20 MG/ML VIAL IV ×3 (08:11→21:46)
[2017-12-12 08:52] LABS: ERYTHROCYTE SEDIMENTATION RATE 63 mm/hr (0-30)
[2017-12-12 08:53] LABS: LACTIC ACID SEPSIS PROTOCOL 6.2 MMOL/L (0.4-2.0)
[2017-12-12] MEDS: ASPIRIN 81 MG ENTERIC TAB PO (09:00)
[2017-12-12] MEDS: BETAMETHASONE VAL 0.1% OINT 15 GM TOP ×2 (09:00→21:52)
[2017-12-12] MEDS: LACTOBACILLUS RHAMNOSUS POWDER PACKET(CULTURELLE) PO (09:00)
[2017-12-12] MEDS: ENOXAPARIN 40 MG/0.4 ML SYRINGE (J1650) SC (09:00)
[2017-12-12] MEDS: NS 1,000 ML IV ×2 (09:15→20:28)
[2017-12-12] MEDS: FAMOTIDINE IV BAG 20 MG in APPROPRIATE DILUENT 1 EA IV ×2 (10:08→21:46)
[2017-12-12] MEDS: methylPREDNISolone INJ 40 MG/1 ML VIAL (J2920) IV ×2 (10:09→21:45)
[2017-12-12] MEDS: HYDROCORTISONE 2.5% 20GM OINTMENT TOP ×2 (10:10→21:47)
[2017-12-12 11:55] LABS: BEDSIDE GLUCOSE 117 MG/DL (80-115)
[2017-12-12 15:05] LABS: AMORPHOUS SEDIMENT SMALL (NEGATIVE); APPEARANCE, URINE HAZY (CLEAR); BACTERIA, URINE AUTO 1+ (NEGATIVE); BILIRUBIN, URINE AUTO NEGATIVE (NEGATIVE); BLOOD, URINE BLOOD 1+ (NEGATIVE); COLOR, URINE YELLOW (YELLOW); GLUCOSE, URINE (UA) AUTO NEGATIVE (NEGATIVE); KETONE, URINE AUTO NEGATIVE (NEGATIVE); LEUKOCYTE ESTERASE, URINE AUTO 1+ (NEGATIVE); MUCUS, URINE SMALL (NEGATIVE); NITRITE, URINE AUTO NEGATIVE (NEGATIVE); PROTEIN, URINE AUTO NEGATIVE (NEGATIVE); RBC, URINE AUTO 9 /HPF (0-3); SPECIFIC GRAVITY URINE AUTO 1.008 (1.002-1.035); SQUAMOUS EPITHELIAL CELL UR AU 2 /HPF (0-6); WBC, URINE AUTO 2 /HPF (0-3)
[2017-12-12] MEDS ORDERED: VARIBAR PUDDING 40% w/v 230ML TUBE As Ordered (15:12)
[2017-12-12] MEDS ORDERED: E-Z-PAQUE 96% w/w SUSP 176GM BTL As Ordered (15:13)
[2017-12-12] MEDS ORDERED: VARIBAR NECTAR 40% w/v 240ML SUSP BTL As Ordered (15:13)
[2017-12-12 16:54] LABS: BEDSIDE GLUCOSE 153 MG/DL (80-115)
[2017-12-12 19:09] LABS: LACTIC ACID SEPSIS PROTOCOL 5.8 MMOL/L (0.4-2.0)
[2017-12-13] MEDS: LABETALOL HCL 100 MG/20 ML VIAL IV ×4 (01:17→21:44)
[2017-12-13] MEDS: hydrALAZINE INJ 20 MG/ML VIAL IV ×4 (01:17→20:00)
[2017-12-13] MEDS: SODIUM CHLORIDE 0.9% INJ 10 ML SYR IV ×3 (06:00→17:07)
[2017-12-13 06:36] LABS: HEMATOCRIT 26.9 % (36.0-47.0); HEMOGLOBIN 8.8 g/dl (12.0-15.5); MEAN CORPUSCULAR HEMOGLOBIN 27.2 pg (27.0-33.0); MEAN CORPUSCULAR HGB CONC 32.7 g/dl (32.0-36.5); MEAN CORPUSCULAR VOLUME 83.3 fl (80.0-96.0); PLATELET COUNT, AUTOMATED 102 10^3/uL (150-450); RED BLOOD COUNT 3.23 10^6/uL (4.00-5.40); RED CELL DISTRIBUTION WIDTH 19.5 % (11.5-14.5); WHITE BLOOD COUNT 9.2 10^3/uL (4.0-10.0)
[2017-12-13 06:38] LABS: ADD MANUAL DIFFER YES; DIFF SLIDE NUMBER 39; POS COUNT POS FLAG; POSITIVE MORPH POS FLAG
[2017-12-13 06:51] LABS: ALBUMIN 2.5 GM/DL (3.2-5.2); ALBUMIN/GLOBULIN RATIO 0.53 (1.00-1.93); ALKALINE PHOSPHATASE 50 U/L (45-117); ALT/SGPT 43 U/L (12-78); ANION GAP 13 MEQ/L (8-16); AST/SGOT 38 U/L (7-37); BILIRUBIN,TOTAL 0.9 MG/DL (0.2-1.0); BLOOD UREA NITROGEN 28 MG/DL (7-18); CALCIUM LEVEL 8.2 MG/DL (8.8-10.2); CARBON DIOXIDE LEVEL 18 MEQ/L (21-32); CHLORIDE LEVEL 102 MEQ/L (98-107); CREATININE FOR GFR 0.94 MG/DL (0.55-1.30); GLOMERULAR FILTRATION RATE > 60.0 (>45); GLUCOSE, FASTING 127 MG/DL (70-100); MAGNESIUM LEVEL 2.2 MG/DL (1.8-2.4); POTASSIUM SERUM 4.2 MEQ/L (3.5-5.1); SODIUM LEVEL 133 MEQ/L (136-145); TOTAL PROTEIN 7.2 GM/DL (6.4-8.2)
[2017-12-13 07:01] LABS: IMMUNOGLOBULIN G 2450 MG/DL (681-1648); IMMUNOGLOBULIN M 49 MG/DL (40-230)
[2017-12-13 07:35] LABS: ANISOCYTOSIS 2+; BANDS 2 % (< 11); LYMPHOCYTES 7 % (16-52); METAMYELOCYTES 3 % (0-0); MONOCYTES 5 % (0-8); MYELOCYTES 3 % (0-0); NEUTROPHILS 80 % (35-75); PLATELET ESTIMATE DECREASED (NORMAL)
[2017-12-13] MEDS: LACTOBACILLUS RHAMNOSUS POWDER PACKET(CULTURELLE) PO (07:55)
[2017-12-13] MEDS: SCOPOLAMINE 1MG TRANSDERMAL PATCH TOP (07:56)
[2017-12-13] MEDS: ASPIRIN 81 MG ENTERIC TAB PO (07:56)
[2017-12-13] MEDS: ENOXAPARIN 40 MG/0.4 ML SYRINGE (J1650) SC ×2 (07:56→09:00)
[2017-12-13] MEDS: BETAMETHASONE VAL 0.1% OINT 15 GM TOP ×2 (07:57→21:47)
[2017-12-13] MEDS: methylPREDNISolone INJ 40 MG/1 ML VIAL (J2920) IV ×2 (08:13→21:44)
[2017-12-13] MEDS: HYDROCORTISONE 2.5% 20GM OINTMENT TOP ×2 (08:14→21:47)
[2017-12-13] MEDS: FAMOTIDINE IV BAG 20 MG in APPROPRIATE DILUENT 1 EA IV ×2 (08:14→21:44)
[2017-12-13 12:26] LABS: LACTIC ACID SEPSIS PROTOCOL 4.9 MMOL/L (0.4-2.0)
[2017-12-13] MEDS: NS 1,000 ML IV (12:41)
[2017-12-14] MEDS: hydrALAZINE INJ 20 MG/ML VIAL IV ×4 (02:00→20:26)
[2017-12-14] MEDS: LABETALOL HCL 100 MG/20 ML VIAL IV ×4 (02:49→20:27)
[2017-12-14] MEDS: SODIUM CHLORIDE 0.9% INJ 10 ML SYR IV ×2 (06:00→18:16)
[2017-12-14 06:30] LABS: BASO % 0.2 % (0.0-1.0); HEMATOCRIT 25.2 % (36.0-47.0); IMMATURE GRANULOCYTE % 4.8 % (0-3.0); LYMPH # 0.5 10^3/uL (1.5-4.5); LYMPH % 8.7 % (24.0-44.0); MEAN CORPUSCULAR HEMOGLOBIN 26.6 pg (27.0-33.0); MEAN CORPUSCULAR HGB CONC 31.7 g/dl (32.0-36.5); MEAN CORPUSCULAR VOLUME 83.7 fl (80.0-96.0); MONO # 0.7 10^3/uL (0.0-0.8); MONO % 10.8 % (0.0-5.0); NEUTROPHILS # 4.5 10^3/uL (1.8-7.7); NEUTROPHILS % 75.5 % (36.0-66.0); RED BLOOD COUNT 3.01 10^6/uL (4.00-5.40); RED CELL DISTRIBUTION WIDTH 19.7 % (11.5-14.5)
[2017-12-14 06:56] LABS: ALBUMIN 2.4 GM/DL (3.2-5.2); ALBUMIN/GLOBULIN RATIO 0.56 (1.00-1.93); ALKALINE PHOSPHATASE 47 U/L (45-117); ALT/SGPT 35 U/L (12-78); ANION GAP 11 MEQ/L (8-16); AST/SGOT 35 U/L (7-37); BILIRUBIN,TOTAL 0.8 MG/DL (0.2-1.0); BLOOD UREA NITROGEN 24 MG/DL (7-18); CALCIUM LEVEL 7.9 MG/DL (8.8-10.2); CARBON DIOXIDE LEVEL 21 MEQ/L (21-32); CHLORIDE LEVEL 103 MEQ/L (98-107); CREATININE FOR GFR 0.86 MG/DL (0.55-1.30); GLOMERULAR FILTRATION RATE > 60.0 (>45); GLUCOSE, FASTING 130 MG/DL (70-100); MAGNESIUM LEVEL 2.1 MG/DL (1.8-2.4); POTASSIUM SERUM 3.9 MEQ/L (3.5-5.1); SODIUM LEVEL 135 MEQ/L (136-145); TOTAL PROTEIN 6.7 GM/DL (6.4-8.2)
[2017-12-14 07:45] LABS: PLATELET COUNT, AUTOMATED 85 10^3/uL (150-450)
[2017-12-14] MEDS: LACTOBACILLUS RHAMNOSUS POWDER PACKET(CULTURELLE) PO (08:12)
[2017-12-14] MEDS: ENOXAPARIN 40 MG/0.4 ML SYRINGE (J1650) SC (08:13)
[2017-12-14] MEDS: ASPIRIN 81 MG ENTERIC TAB PO (08:13)
[2017-12-14] MEDS: BETAMETHASONE VAL 0.1% OINT 15 GM TOP ×2 (08:15→20:28)
[2017-12-14] MEDS: HYDROCORTISONE 2.5% 20GM OINTMENT TOP ×2 (08:30→20:28)
[2017-12-14] MEDS: FAMOTIDINE IV BAG 20 MG in APPROPRIATE DILUENT 1 EA IV ×2 (08:30→20:27)
[2017-12-14] MEDS: methylPREDNISolone INJ 40 MG/1 ML VIAL (J2920) IV ×2 (08:30→20:26)
[2017-12-14 08:32] LABS: IMMATURE PLATELET FRACTION % 5.7 % (0.0-9.6)
[2017-12-14 17:26] LABS: KETONE, URINE AUTO RFX NEGATIVE (NEGATIVE); LEUKOCYTE ESTERASE UR AUTO RFX NEGATIVE (NEGATIVE); NITRITE, URINE AUTO RFX NEGATIVE (NEGATIVE); RBC, URINE AUTO RFX 0 /HPF (0-3); SPECIFIC GRAVITY UR AUTO RFX 1.013 (1.002-1.035); SQUAM EPITHELIAL CELL UR AURFX 0 /HPF (0-6); WBC, URINE AUTO RFX 2 /HPF (0-3)
[2017-12-15] MEDS: LABETALOL HCL 100 MG/20 ML VIAL IV ×4 (02:07→20:52)
[2017-12-15] MEDS: hydrALAZINE INJ 20 MG/ML VIAL IV ×4 (02:08→20:53)
[2017-12-15] MEDS: SODIUM CHLORIDE 0.9% INJ 10 ML SYR IV ×3 (05:12→17:01)
[2017-12-15 05:20] LABS: BASO % 0.2 % (0.0-1.0); HEMOGLOBIN 8.1 g/dl (12.0-15.5); IMMATURE GRANULOCYTE % 4.1 % (0-3.0); LYMPH # 0.4 10^3/uL (1.5-4.5); LYMPH % 8.3 % (24.0-44.0); MEAN CORPUSCULAR HEMOGLOBIN 26.7 pg (27.0-33.0); MEAN CORPUSCULAR HGB CONC 32.4 g/dl (32.0-36.5); MEAN CORPUSCULAR VOLUME 82.5 fl (80.0-96.0); MONO # 0.6 10^3/uL (0.0-0.8); MONO % 11.5 % (0.0-5.0); NEUTROPHILS % 75.9 % (36.0-66.0); RED BLOOD COUNT 3.03 10^6/uL (4.00-5.40); RED CELL DISTRIBUTION WIDTH 19.6 % (11.5-14.5); WHITE BLOOD COUNT 5.3 10^3/uL (4.0-10.0)
[2017-12-15 05:28] LABS: PLATELET COUNT, AUTOMATED 83 10^3/uL (150-450)
[2017-12-15 05:35] LABS: LACTIC ACID SEPSIS PROTOCOL 1.7 MMOL/L (0.4-2.0)
[2017-12-15 05:48] LABS: ALBUMIN 2.7 GM/DL (3.2-5.2); ALBUMIN/GLOBULIN RATIO 0.68 (1.00-1.93); ALKALINE PHOSPHATASE 43 U/L (45-117); ALT/SGPT 34 U/L (12-78); ANION GAP 13 MEQ/L (8-16); AST/SGOT 31 U/L (7-37); BILIRUBIN,TOTAL 0.8 MG/DL (0.2-1.0); BLOOD UREA NITROGEN 26 MG/DL (7-18); C REACTIVE PROTEIN QUANTITATIV 0.32 MG/DL (0.00-0.30); CALCIUM LEVEL 8.3 MG/DL (8.8-10.2); CARBON DIOXIDE LEVEL 20 MEQ/L (21-32); CHLORIDE LEVEL 104 MEQ/L (98-107); CPK CREATINE PHOSPHOKINASE 30 U/L (26-192); CREATININE FOR GFR 0.76 MG/DL (0.55-1.30); GLOMERULAR FILTRATION RATE > 60.0 (>45); GLUCOSE, FASTING 136 MG/DL (70-100); LDH LACTATE DEHYDROGENASE 290 U/L (84-246); MAGNESIUM LEVEL 2.3 MG/DL (1.8-2.4); POTASSIUM SERUM 3.7 MEQ/L (3.5-5.1); SODIUM LEVEL 137 MEQ/L (136-145); TOTAL PROTEIN 6.7 GM/DL (6.4-8.2)
[2017-12-15 06:24] LABS: ERYTHROCYTE SEDIMENTATION RATE 58 mm/hr (0-30)
[2017-12-15] MEDS: ASPIRIN 81 MG ENTERIC TAB PO (08:41)
[2017-12-15] MEDS: LACTOBACILLUS RHAMNOSUS POWDER PACKET(CULTURELLE) PO (08:41)
[2017-12-15] MEDS: ENOXAPARIN 40 MG/0.4 ML SYRINGE (J1650) SC (08:42)
[2017-12-15] MEDS: FAMOTIDINE IV BAG 20 MG in APPROPRIATE DILUENT 1 EA IV ×2 (08:42→20:53)
[2017-12-15] MEDS: methylPREDNISolone INJ 40 MG/1 ML VIAL (J2920) IV ×2 (08:42→20:52)
[2017-12-15] MEDS: HYDROCORTISONE 2.5% 20GM OINTMENT TOP ×2 (08:43→20:54)
[2017-12-15] MEDS: BETAMETHASONE VAL 0.1% OINT 15 GM TOP ×2 (08:43→20:54)
[2017-12-15] MEDS: NS 1,000 ML IV (15:50)
[2017-12-16] MEDS: LABETALOL HCL 100 MG/20 ML VIAL IV ×3 (01:55→14:00)
[2017-12-16] MEDS: hydrALAZINE INJ 20 MG/ML VIAL IV ×3 (01:56→13:59)
[2017-12-16] MEDS: NS 1,000 ML IV ×2 (03:57→13:59)
[2017-12-16] MEDS: SODIUM CHLORIDE 0.9% INJ 10 ML SYR IV ×2 (05:01→17:24)
[2017-12-16 05:17] LABS: EOS % 0.2 % (0.0-3.0); HEMOGLOBIN 7.8 g/dl (12.0-15.5); LYMPH # 0.5 10^3/uL (1.5-4.5); LYMPH % 10.9 % (24.0-44.0); MEAN CORPUSCULAR HGB CONC 32.5 g/dl (32.0-36.5); MONO # 0.7 10^3/uL (0.0-0.8); MONO % 13.1 % (0.0-5.0); NEUTROPHILS # 3.6 10^3/uL (1.8-7.7); NEUTROPHILS % 71.8 % (36.0-66.0); RED BLOOD COUNT 2.89 10^6/uL (4.00-5.40); RED CELL DISTRIBUTION WIDTH 19.7 % (11.5-14.5)
[2017-12-16 05:18] LABS: IMMATURE PLATELET FRACTION % 4.3 % (0.0-9.6); PLATELET COUNT, AUTOMATED 76 10^3/uL (150-450)
[2017-12-16 05:37] LABS: ERYTHROCYTE SEDIMENTATION RATE 56 mm/hr (0-30)
[2017-12-16 05:56] LABS: ALBUMIN 2.5 GM/DL (3.2-5.2); ALBUMIN/GLOBULIN RATIO 0.64 (1.00-1.93); ALKALINE PHOSPHATASE 43 U/L (45-117); ALT/SGPT 32 U/L (12-78); ANION GAP 10 MEQ/L (8-16); AST/SGOT 32 U/L (7-37); BILIRUBIN,TOTAL 0.8 MG/DL (0.2-1.0); BLOOD UREA NITROGEN 23 MG/DL (7-18); C REACTIVE PROTEIN QUANTITATIV 0.42 MG/DL (0.00-0.30); CALCIUM LEVEL 7.7 MG/DL (8.8-10.2); CARBON DIOXIDE LEVEL 20 MEQ/L (21-32); CHLORIDE LEVEL 106 MEQ/L (98-107); CPK CREATINE PHOSPHOKINASE 29 U/L (26-192); CREATININE FOR GFR 0.76 MG/DL (0.55-1.30); GLOMERULAR FILTRATION RATE > 60.0 (>45); GLUCOSE, FASTING 117 MG/DL (70-100); MAGNESIUM LEVEL 2.1 MG/DL (1.8-2.4); POTASSIUM SERUM 3.5 MEQ/L (3.5-5.1); SODIUM LEVEL 136 MEQ/L (136-145); TOTAL PROTEIN 6.4 GM/DL (6.4-8.2)
[2017-12-16 05:56] LABS: LDH LACTATE DEHYDROGENASE 282 U/L (84-246)
[2017-12-16] MEDS: LACTOBACILLUS RHAMNOSUS POWDER PACKET(CULTURELLE) PO (07:56)
[2017-12-16] MEDS: ENOXAPARIN 40 MG/0.4 ML SYRINGE (J1650) SC (07:57)
[2017-12-16] MEDS: ASPIRIN 81 MG ENTERIC TAB PO (07:57)
[2017-12-16] MEDS: methylPREDNISolone INJ 40 MG/1 ML VIAL (J2920) IV (08:47)
[2017-12-16] MEDS: FAMOTIDINE IV BAG 20 MG in APPROPRIATE DILUENT 1 EA IV (08:47)
[2017-12-16] MEDS: SCOPOLAMINE 1MG TRANSDERMAL PATCH TOP (08:48)
[2017-12-16] MEDS: HYDROCORTISONE 2.5% 20GM OINTMENT TOP (08:48)
[2017-12-16] MEDS: BETAMETHASONE VAL 0.1% OINT 15 GM TOP (08:49)
[2017-12-17 00:08] LABS: ALDOLASE 4.4 U/L (3.3-10.3)
== END 2017-12-16 18:34 | disposition short-term general hospital (02) | DRG 351 ==
LOC: M ICU 12-04 18:38 → M PCU 12-06 13:12 → M ED 01:06 → M ED INP 03:43 → M MSPAV 13:33
PROC: 0KBQ0ZX Excision of Right Upper Leg Muscle, Open Approach, Diagnostic (ICD-10-PCS; principal; 2017-12-06)
PROC: 02HV33Z Insertion of Infusion Device into Superior Vena Cava, Percutaneous Approach (ICD-10-PCS; 2017-12-06)
DX: M60.9 Myositis, unspecified (principal); E46 Unspecified protein-calorie malnutrition; D61.818 Other pancytopenia; E87.2 Acidosis; D69.6 Thrombocytopenia, unspecified; R13.10 Dysphagia, unspecified; E78.5 Hyperlipidemia, unspecified; I25.10 Atherosclerotic heart disease of native coronary artery without angina pectoris; E86.0 Dehydration; D48.5 Neoplasm of uncertain behavior of skin; I10 Essential (primary) hypertension; Z95.9 Presence of cardiac and vascular implant and graft, unspecified; Z79.82 Long term (current) use of aspirin; Z79.899 Other long term (current) drug therapy; Z90.5 Acquired absence of kidney; I25.2 Old myocardial infarction; Z85.528 Personal history of other malignant neoplasm of kidney; Z90.710 Acquired absence of both cervix and uterus; Z74.01 Bed confinement status; Z68.26 Body mass index [BMI] 26.0-26.9, adult

== ENCOUNTER 2018-01-23 14:09 | Emergency (ER) | payer BC, MEDICARE | END 2018-01-23 15:00 | disposition left against medical advice (07) | LOC: M ED 14:09 | DX: K94.20 Gastrostomy complication, unspecified (principal); Z53.21 Procedure and treatment not carried out due to patient leaving prior to being seen by health care provider; Z79.82 Long term (current) use of aspirin; Z79.899 Other long term (current) drug therapy ==

== ENCOUNTER 2018-01-27 10:11 | Outpatient (CLI) | payer BC, MEDICARE ==
[2018-01-27] MEDS: methylPREDNISolone 500 MG, VIAL MATE ADAPTER 1 EACH in D5W 250 ML IV (11:00)
== END 2018-01-27 12:35 | disposition home or self-care (01) ==
LOC: M INFU 10:11
DX: M60.9 Myositis, unspecified (principal)
CPT/HCPCS: J2930

== ENCOUNTER 2018-02-02 06:44 | Outpatient (CLI) | payer BC, MEDICARE ==
[2018-02-02] MEDS: methylPREDNISolone 500 MG, VIAL MATE ADAPTER 1 EACH in D5W 250 ML IV (07:10)
[2018-02-02] MEDS: diphenhydrAMINE 25 MG CAP PO (08:00)
[2018-02-02] MEDS: IMMUNE GLOBULIN 10% 5GM 5 GM in APPROPRIATE DILUENT 1 EA IV (08:00)
[2018-02-02] MEDS: IMMUNE GLOBULIN 10% 20GM 200ML 60 GM in APPROPRIATE DILUENT 1 EA IV (08:00)
[2018-02-02] MEDS: ACETAMINOPHEN TAB 650MG DOSE (2X325MG) PO (08:02)
== END 2018-02-02 14:00 | disposition home or self-care (01) ==
LOC: M INFU 06:44
DX: M33.10 Other dermatomyositis, organ involvement unspecified (principal)
CPT/HCPCS: J2930

== ENCOUNTER → 2018-02-06 | Outpatient (CLI) | payer BC, MEDICARE ==
[2018-02-06 19:30] LABS: ANION GAP 11 MEQ/L (8-16); BLOOD UREA NITROGEN 42 MG/DL (7-18); CALCIUM LEVEL 11.9 MG/DL (8.8-10.2); CARBON DIOXIDE LEVEL 25 MEQ/L (21-32); CHLORIDE LEVEL 99 MEQ/L (98-107); CREATININE FOR GFR 2.37 MG/DL (0.55-1.30); GLOMERULAR FILTRATION RATE 21.6 (>39); GLUCOSE, FASTING 114 MG/DL (70-100); PHOSPHORUS LEVEL 3.6 MG/DL (2.5-4.9); POTASSIUM SERUM 3.7 MEQ/L (3.5-5.1); SODIUM LEVEL 135 MEQ/L (136-145)
[2018-02-09 14:22] LABS: PHOSPHOLIPIDS LEVEL 267 mg/dL (150-250)
== END ==
LOC: M WUC 16:29
DX: I10 Essential (primary) hypertension (principal)
CPT/HCPCS: 80069

== ENCOUNTER 2018-02-10 14:56 | Outpatient (CLI) | payer BC, MEDICARE ==
[2018-02-10] MEDS: methylPREDNISolone 500 MG, VIAL MATE ADAPTER 1 EACH in D5W 250 ML IV (15:24)
== END 2018-02-10 16:40 | disposition home or self-care (01) ==
LOC: M INFU 14:56
DX: M33.93 Dermatopolymyositis, unspecified without myopathy (principal); Z79.82 Long term (current) use of aspirin; Z79.899 Other long term (current) drug therapy
CPT/HCPCS: J2930

== ENCOUNTER 2018-02-21 15:49 | Outpatient (CLI) | payer BC, MEDICARE ==
[2018-02-21] MEDS: methylPREDNISolone 500 MG, VIAL MATE ADAPTER 1 EACH in D5W 250 ML IV (16:09)
== END 2018-02-21 17:20 | disposition home or self-care (01) ==
LOC: M INFU 15:49
DX: M33.90 Dermatopolymyositis, unspecified, organ involvement unspecified (principal)
CPT/HCPCS: J2930

== ENCOUNTER 2018-03-03 06:39 | Outpatient (CLI) | payer BC, MEDICARE, OTHER ==
[2018-03-03] MEDS: methylPREDNISolone 500 MG, VIAL MATE ADAPTER 1 EACH in D5W 250 ML IV (07:11)
== END 2018-03-03 08:40 | disposition home or self-care (01) ==
LOC: M INFU 06:39
DX: M33.93 Dermatopolymyositis, unspecified without myopathy (principal)
CPT/HCPCS: J2930

== ENCOUNTER 2018-03-10 07:49 | Outpatient (CLI) | payer BC, MEDICARE, OTHER ==
[~2018-03-10] VITALS: Ht 157.5 cm; Wt 64.0 kg
[~2018-03-10 07:49] MED LIST changes: +ACET30TAB PO; +ASPI1TAB PO; +ASPI81CH GT; +LOPR1TAB6 GT; +METO37.5 PO; +ROBISYP7 GT; +SYST1SOL OU; +XARE20TA GT
[2018-03-10 08:07] VITALS: BP 164/88
[2018-03-10] MEDS ORDERED: methylPREDNISolone 500 MG, VIAL MATE ADAPTER 1 EACH in D5W 250 ML IV ONE (08:15)
[2018-03-10 09:55] VITALS: BP 150/72
== END 2018-03-10 09:55 | disposition home or self-care (01) ==
LOC: M INFU 07:49
PROVIDERS: ATTEND Internal Medicine
DX: M33.93 Dermatopolymyositis, unspecified without myopathy (principal)
CPT/HCPCS: 96365; 96366; J2930

== ENCOUNTER 2018-03-17 14:34 | Outpatient (CLI) | payer BC, MEDICARE, OTHER ==
[~2018-03-17] VITALS: Ht 157.5 cm; Wt 64.0 kg
[~2018-03-17 14:34] MED LIST changes: +methylPREDNISolone 500 MG, VIAL MATE ADAPTER 1 EACH in D5W 250 ML IV ONE
[2018-03-17 14:40] VITALS: BP 160/64
[2018-03-17 16:10] VITALS: BP 160/82
== END 2018-03-17 16:15 | disposition home or self-care (01) ==
LOC: M INFU 14:34
PROVIDERS: ATTEND Internal Medicine
DX: M33.90 Dermatopolymyositis, unspecified, organ involvement unspecified (principal)
CPT/HCPCS: 96365; 96366; J2930

== ENCOUNTER 2018-03-24 07:39 | Outpatient (CLI) | payer BC, MEDICARE, OTHER ==
[~2018-03-24] VITALS: Ht 157.5 cm; Wt 64.0 kg
[~2018-03-24 07:39] MED LIST changes: -methylPREDNISolone 500 MG, VIAL MATE ADAPTER 1 EACH in D5W 250 ML IV ONE
[2018-03-24 07:45] VITALS: BP 140/64
[2018-03-24] MEDS ORDERED: methylPREDNISolone 500 MG, VIAL MATE ADAPTER 1 EACH in D5W 250 ML IV ONE (08:00)
[2018-03-24 09:15] VITALS: BP 150/70
== END 2018-03-24 09:15 | disposition home or self-care (01) ==
LOC: M INFU 07:39
PROVIDERS: ATTEND Internal Medicine
DX: M33.90 Dermatopolymyositis, unspecified, organ involvement unspecified (principal)
CPT/HCPCS: 96365; J2930

== ENCOUNTER 2018-03-31 15:43 | Outpatient (CLI) | payer BC, MEDICARE, OTHER ==
[~2018-03-31] VITALS: Ht 157.5 cm; Wt 64.0 kg
[2018-03-31] MEDS ORDERED: methylPREDNISolone 500 MG, VIAL MATE ADAPTER 1 EACH in D5W 250 ML IV ONE (15:45)
[2018-03-31 16:00] VITALS: BP 168/84
[2018-03-31 17:18] VITALS: BP 154/80
== END 2018-03-31 17:20 | disposition home or self-care (01) ==
LOC: M INFU 15:43
PROVIDERS: ATTEND Internal Medicine
DX: M33.90 Dermatopolymyositis, unspecified, organ involvement unspecified (principal)
CPT/HCPCS: 96365; 96366; J2930

== ENCOUNTER 2018-04-07 16:00 | Outpatient (CLI) | payer BC, MEDICARE, OTHER ==
[~2018-04-07] VITALS: Ht 157.5 cm; Wt 64.0 kg
[~2018-04-07 16:00] MED LIST changes: +methylPREDNISolone 500 MG, VIAL MATE ADAPTER 1 EACH in D5W 250 ML IV ONE
[2018-04-07 16:05] VITALS: BP 154/82
[2018-04-07 17:17] VITALS: BP 158/64
== END 2018-04-07 17:20 | disposition home or self-care (01) ==
LOC: M INFU 16:00
PROVIDERS: ATTEND General Practice
DX: M33.93 Dermatopolymyositis, unspecified without myopathy (principal)
CPT/HCPCS: 96365; 96366; J2930

== ENCOUNTER 2018-04-14 15:59 | Outpatient (CLI) | payer BC, MEDICARE, OTHER ==
[~2018-04-14] VITALS: Ht 157.5 cm; Wt 64.0 kg
[~2018-04-14 15:59] MED LIST changes: -methylPREDNISolone 500 MG, VIAL MATE ADAPTER 1 EACH in D5W 250 ML IV ONE
[2018-04-14 16:05] VITALS: BP 164/70
[2018-04-14] MEDS ORDERED: methylPREDNISolone 500 MG, VIAL MATE ADAPTER 1 EACH in D5W 250 ML IV ONE (17:00)
[2018-04-14 18:15] VITALS: BP 182/78
== END 2018-04-14 18:15 | disposition home or self-care (01) ==
LOC: M INFU 15:59
PROVIDERS: ATTEND Internal Medicine
DX: M33.93 Dermatopolymyositis, unspecified without myopathy (principal)
CPT/HCPCS: 96365; J2930

== ENCOUNTER → 2018-04-23 | Outpatient (CLI) | payer BC, MEDICARE, OTHER ==
[2018-04-23 10:41] LABS: ALBUMIN 3.5 GM/DL (3.2-5.2); BILIRUBIN,TOTAL 0.5 MG/DL (0.2-1.0); CALCIUM LEVEL 9.3 MG/DL (8.8-10.2); CHOLESTEROL RISK RATIO 7.487 (<5); CREATININE FOR GFR 1.29 MG/DL (0.55-1.30); GLOMERULAR FILTRATION RATE 43.5 (>39); POTASSIUM SERUM 4.3 MEQ/L (3.5-5.1); TOTAL PROTEIN 6.4 GM/DL (6.4-8.2)
[2018-04-24 09:36] LABS: TOTAL 25(OH) VITAMIN D 77.9 NG/ML (30.0-100.0)
[2018-04-24 09:37] LABS: PTH INTACT 47.7 PG/ML (18.5-88.0)
== END ==
LOC: M WUC 08:35
PROVIDERS: ATTEND Internal Medicine Nephrology
DX: E78.2 Mixed hyperlipidemia (principal); N18.4 Chronic kidney disease, stage 4 (severe); N25.81 Secondary hyperparathyroidism of renal origin; E55.9 Vitamin D deficiency, unspecified

== ENCOUNTER 2018-04-27 15:22 | Outpatient (CLI) | payer BC, MEDICARE, OTHER ==
[~2018-04-27] VITALS: Ht 157.5 cm; Wt 64.0 kg
[2018-04-27] MEDS ORDERED: methylPREDNISolone 500 MG, VIAL MATE ADAPTER 1 EACH in D5W 250 ML IV ONE (15:45)
[2018-04-27 15:54] VITALS: BP 140/80
[2018-04-27 16:39] VITALS: BP 162/80
== END 2018-04-27 16:45 | disposition home or self-care (01) ==
LOC: M INFU 15:22
PROVIDERS: ATTEND Internal Medicine
DX: M33.90 Dermatopolymyositis, unspecified, organ involvement unspecified (principal)
CPT/HCPCS: 96365; J2930

== ENCOUNTER 2018-05-04 15:53 | Outpatient (CLI) | payer BC, MEDICARE, OTHER ==
[~2018-05-04] VITALS: Ht 157.5 cm; Wt 64.0 kg
[2018-05-04 16:00] VITALS: BP 160/72
[2018-05-04] MEDS ORDERED: methylPREDNISolone 500 MG, VIAL MATE ADAPTER 1 EACH in D5W 250 ML IV ONE (16:00)
[2018-05-04] MEDS ORDERED: methylPREDNISolone 500 MG VIAL (J2930) As Ordered ONE (16:13)
[2018-05-04 17:41] VITALS: BP 156/74
== END 2018-05-04 17:40 | disposition home or self-care (01) ==
LOC: M INFU 15:53
PROVIDERS: ATTEND Internal Medicine
DX: M33.90 Dermatopolymyositis, unspecified, organ involvement unspecified (principal)
CPT/HCPCS: 96365; J2930

== ENCOUNTER 2018-05-11 16:04 | Outpatient (CLI) | payer BC, MEDICARE, OTHER ==
[~2018-05-11] VITALS: Ht 154.9 cm; Wt 64.0 kg
[2018-05-11 16:00] VITALS: BP 160/60
[~2018-05-11 16:04] MED LIST changes: +methylPREDNISolone 500 MG, VIAL MATE ADAPTER 1 EACH in D5W 250 ML IV ONE
[2018-05-11 17:34] VITALS: BP 150/70
== END 2018-05-11 17:40 | disposition home or self-care (01) ==
LOC: M INFU 16:04
PROVIDERS: ATTEND Internal Medicine
DX: M33.90 Dermatopolymyositis, unspecified, organ involvement unspecified (principal)
CPT/HCPCS: 96365; J2930

== ENCOUNTER 2018-05-18 15:46 | Outpatient (CLI) | payer BC, MEDICARE ==
[~2018-05-18] VITALS: Ht 162.6 cm; Wt 64.0 kg
[2018-05-18 15:50] VITALS: BP 146/67
[2018-05-18 15:54] VITALS: BP 140/60
[2018-05-18] MEDS ORDERED: AMLO5TAB6 PO (16:57)
[2018-05-18] MEDS ORDERED: METO1TAB33 PO (16:58)
[2018-05-18 17:05] VITALS: BP 130/60
== END 2018-05-18 17:15 | disposition home or self-care (01) ==
LOC: M INFU 15:46
PROVIDERS: ATTEND Internal Medicine
DX: M33.90 Dermatopolymyositis, unspecified, organ involvement unspecified (principal); Z79.82 Long term (current) use of aspirin
CPT/HCPCS: 96365; J2930

== ENCOUNTER → 2018-05-22 | Outpatient (CLI) | payer BC, MEDICARE, OTHER ==
[~2018-05-22] MED LIST changes: +AMLO5TAB6 PO; +METO1TAB33 PO; -methylPREDNISolone 500 MG, VIAL MATE ADAPTER 1 EACH in D5W 250 ML IV ONE
--- NOTE | 2018-05-22 14:13 | PFTRPT ---
Height: 62.00 Inches Weight: 140.00 Lbs BSA: 1.64 Diagnosis: R06.00 DATE OF PROCEDURE: 05/22/2018 ORDERED BY: John Paul Gardner Spirometry: Study of excellent technical quality. Forced vital capacity normal. FEV1 generally in proportion. Obstructive index is, therefore, normal. Flow Volume Loop: Expiratory limb of the flow volume loop does suggest airflow limitation. Lung Volumes: Total lung capacity normal. Residual volume is in proportion. Diffusing Capacity: Diffusing capacity significantly reduced but is appropriate for alveolar volume. Hemoglobin: No hemoglobin available for correction. Airway Mechanics: Airway resistance and conductance are normal. IMPRESSION: Nonspecific flow limitation with decrease in the absolute diffusing capacity. Please correlate clinically. MTDD
== END ==
LOC: M CARPUL 13:28
PROVIDERS: ATTEND Nurse Practitioner Family
DX: R06.00 Dyspnea, unspecified (principal)

== ENCOUNTER 2018-05-31 15:43 | Outpatient (CLI) | payer BC, MEDICARE ==
[~2018-05-31] VITALS: Ht 162.6 cm; Wt 64.0 kg
[~2018-05-31 15:43] MED LIST changes: +methylPREDNISolone 500 MG, VIAL MATE ADAPTER 1 EACH in D5W 250 ML IV ONE
[2018-05-31 15:50] VITALS: BP 140/80
[2018-05-31 17:15] VITALS: BP 138/70
== END 2018-05-31 17:15 | disposition home or self-care (01) ==
LOC: M INFU 15:43
PROVIDERS: ATTEND General Practice
DX: M33.90 Dermatopolymyositis, unspecified, organ involvement unspecified (principal)
CPT/HCPCS: 96365; J2930

== ENCOUNTER 2018-06-07 15:43 | Outpatient (CLI) | payer BC, MEDICARE ==
[~2018-06-07] VITALS: Ht 162.6 cm; Wt 64.0 kg
[~2018-06-07 15:43] MED LIST changes: -methylPREDNISolone 500 MG, VIAL MATE ADAPTER 1 EACH in D5W 250 ML IV ONE
[2018-06-07 15:50] VITALS: BP 148/74
[2018-06-07] MEDS ORDERED: methylPREDNISolone 500 MG, VIAL MATE ADAPTER 1 EACH in D5W 250 ML IV ONE (16:00)
[2018-06-07 17:05] VITALS: BP 118/62
== END 2018-06-07 17:10 | disposition home or self-care (01) ==
LOC: M INFU 15:43
PROVIDERS: ATTEND Internal Medicine
DX: M33.93 Dermatopolymyositis, unspecified without myopathy (principal)
CPT/HCPCS: 96365; J2930

== ENCOUNTER 2018-06-14 15:11 | Outpatient (CLI) | payer BC, MEDICARE ==
[~2018-06-14] VITALS: Ht 160 cm; Wt 64.0 kg
[2018-06-14 15:30] VITALS: BP 124/76
[2018-06-14] MEDS ORDERED: methylPREDNISolone 500 MG, VIAL MATE ADAPTER 1 EACH in D5W 250 ML IV ONE (15:30)
[2018-06-14 17:15] VITALS: BP 138/76
== END 2018-06-14 17:15 | disposition home or self-care (01) ==
LOC: M INFU 15:11
PROVIDERS: ATTEND Internal Medicine
DX: M33.90 Dermatopolymyositis, unspecified, organ involvement unspecified (principal)
CPT/HCPCS: 96365; J2930

== ENCOUNTER → 2018-06-22 | Outpatient (CLI) | payer BC, MEDICARE ==
[~2018-06-22] VITALS: Ht 162.6 cm; Wt 64.0 kg
[~2018-06-22] MED LIST changes: +ACET-716 PO; -ACET30TAB PO; -ASPI1TAB PO; -ASPI81CH GT; +ASPI81CH49 GT; +ASPI81TA26 PO; +METH2.5T48; +methylPREDNISolone 500 MG, VIAL MATE ADAPTER 1 EACH in D5W 250 ML IV ONE
[2018-06-22 16:00] VITALS: BP 156/62
[2018-06-22 17:05] VITALS: BP 124/72
== END ==
LOC: M INFU 15:42
PROVIDERS: ATTEND Internal Medicine
DX: M33.10 Other dermatomyositis, organ involvement unspecified (principal)
CPT/HCPCS: 96365; J2930

== ENCOUNTER 2018-06-26 04:54 | Emergency (ER) | payer BC, MEDICARE, OTHER ==
[~2018-06-26] VITALS: Ht 157.5 cm; Wt 63.6 kg
[~2018-06-26 04:54] MED LIST changes: -METH2.5T48; -methylPREDNISolone 500 MG, VIAL MATE ADAPTER 1 EACH in D5W 250 ML IV ONE
[2018-06-26] MEDS ORDERED: METH2.5T48 (05:04)
[2018-06-26 05:33] VITALS: BP 166/83
== END 2018-06-26 06:01 | disposition home or self-care (01) ==
LOC: M ED 04:54
DX: R33.9 Retention of urine, unspecified (principal); Z87.448 Personal history of other diseases of urinary system; I10 Essential (primary) hypertension; M33.10 Other dermatomyositis, organ involvement unspecified; Z79.82 Long term (current) use of aspirin; Z79.899 Other long term (current) drug therapy

== ENCOUNTER 2018-06-28 15:40 | Outpatient (CLI) | payer BC, MEDICARE ==
[~2018-06-28] VITALS: Ht 160 cm; Wt 64.0 kg
[~2018-06-28 15:40] MED LIST changes: +METH2.5T48
[2018-06-28 15:45] VITALS: BP 172/75
[2018-06-28] MEDS ORDERED: methylPREDNISolone 500 MG, VIAL MATE ADAPTER 1 EACH in D5W 250 ML IV ONE (16:00)
[2018-06-28 17:15] VITALS: BP 140/70
== END 2018-06-28 17:15 | disposition home or self-care (01) ==
LOC: M INFU 15:40
PROVIDERS: ATTEND Internal Medicine
DX: M33.90 Dermatopolymyositis, unspecified, organ involvement unspecified (principal)
CPT/HCPCS: 96365; J2930

== ENCOUNTER 2018-07-05 15:40 | Outpatient (CLI) | payer BC, MEDICARE ==
[~2018-07-05] VITALS: Ht 160 cm; Wt 64.0 kg
[2018-07-05 16:00] VITALS: BP 132/68
[2018-07-05] MEDS ORDERED: methylPREDNISolone 500 MG, VIAL MATE ADAPTER 1 EACH in D5W 250 ML IV ONE (16:30)
[2018-07-05 17:40] VITALS: BP 132/66
== END 2018-07-05 17:40 | disposition home or self-care (01) ==
LOC: M INFU 15:40
PROVIDERS: ATTEND Internal Medicine
DX: M33.90 Dermatopolymyositis, unspecified, organ involvement unspecified (principal)
CPT/HCPCS: 96365; J2930

== ENCOUNTER 2018-07-12 15:44 | Outpatient (CLI) | payer BC, MEDICARE ==
[~2018-07-12] VITALS: Ht 160 cm; Wt 64.0 kg
[2018-07-12 15:57] VITALS: BP 110/62
[2018-07-12] MEDS ORDERED: methylPREDNISolone 500 MG, VIAL MATE ADAPTER 1 EACH in D5W 250 ML IV ONE (16:00)
[2018-07-12 17:22] VITALS: BP 112/68
== END 2018-07-12 17:25 | disposition home or self-care (01) ==
LOC: M INFU 15:44
PROVIDERS: ATTEND Internal Medicine
DX: M33.90 Dermatopolymyositis, unspecified, organ involvement unspecified (principal)
CPT/HCPCS: 96365; J2930

== ENCOUNTER 2018-07-19 15:43 | Outpatient (CLI) | payer BC, MEDICARE ==
[~2018-07-19] VITALS: Ht 160 cm; Wt 64.0 kg
[2018-07-19] MEDS ORDERED: methylPREDNISolone 500 MG, VIAL MATE ADAPTER 1 EACH in D5W 250 ML IV ONE (16:00)
[2018-07-19 16:10] VITALS: BP 118/68
[2018-07-19 17:25] VITALS: BP 122/68
== END 2018-07-19 17:25 | disposition home or self-care (01) ==
LOC: M INFU 15:43
PROVIDERS: ATTEND Internal Medicine
DX: M33.90 Dermatopolymyositis, unspecified, organ involvement unspecified (principal)
CPT/HCPCS: 96365; J2930

== ENCOUNTER 2018-07-27 15:42 | Outpatient (CLI) | payer BC, MEDICARE ==
[~2018-07-27] VITALS: Ht 160 cm; Wt 64.0 kg
[2018-07-27 16:00] VITALS: BP 144/68
[2018-07-27] MEDS ORDERED: methylPREDNISolone 500 MG, VIAL MATE ADAPTER 1 EACH in D5W 250 ML IV ONE (16:00)
[2018-07-27 17:15] VITALS: BP 138/74
== END 2018-07-27 17:20 | disposition home or self-care (01) ==
LOC: M INFU 15:42
PROVIDERS: ATTEND Internal Medicine
DX: M33.90 Dermatopolymyositis, unspecified, organ involvement unspecified (principal)
CPT/HCPCS: 96365; J2930

== ENCOUNTER → 2018-08-13 | Outpatient (CLI) | payer BC, MEDICARE ==
[2018-08-13 17:17] LABS: ALBUMIN 3.2 GM/DL (3.2-5.2); CALCIUM LEVEL 8.8 MG/DL (8.8-10.2); CREATININE FOR GFR 1.23 MG/DL (0.55-1.30); PHOSPHORUS LEVEL 3.4 MG/DL (2.5-4.9); POTASSIUM SERUM 4.3 MEQ/L (3.5-5.1)
[2018-08-13 17:25] LABS: APPEARANCE, URINE CLEAR (CLEAR); BACTERIA, URINE AUTO 1+ (NEGATIVE); BILIRUBIN, URINE AUTO NEGATIVE (NEGATIVE); BLOOD, URINE BLOOD NEGATIVE (NEGATIVE); COLOR, URINE YELLOW (YELLOW); GLUCOSE, URINE (UA) AUTO NEGATIVE (NEGATIVE); KETONE, URINE AUTO NEGATIVE (NEGATIVE); LEUKOCYTE ESTERASE, URINE AUTO NEGATIVE (NEGATIVE); MUCUS, URINE MODERATE (NEGATIVE); NITRITE, URINE AUTO NEGATIVE (NEGATIVE); PROTEIN, URINE AUTO NEGATIVE (NEGATIVE); RBC, URINE AUTO 1 /HPF (0-3); SPECIFIC GRAVITY URINE AUTO 1.017 (1.002-1.035); SQUAMOUS EPITHELIAL CELL UR AU 1 /HPF (0-6); UROBILINOGEN, URINE AUTO 0.2 mg/dL (0.0-2.0); WBC, URINE AUTO 0 /HPF (0-3)
[2018-08-13 17:28] LABS: BASO # 0.1 10^3/uL (0.0-0.2); BASO % 0.9 % (0.0-1.0); EOS # 0.2 10^3/uL (0.0-0.50); EOS % 3.1 % (0.0-3.0); HEMOGLOBIN 12.5 g/dl (12.0-15.5); LYMPH # 1.3 10^3/uL (1.5-4.5); LYMPH % 22.5 % (24.0-44.0); MEAN CORPUSCULAR HGB CONC 32.1 g/dl (32.0-36.5); MEAN CORPUSCULAR VOLUME 84.2 fl (80.0-96.0); MONO # 0.6 10^3/uL (0.0-0.8); MONO % 9.6 % (0.0-5.0); NEUTROPHILS # 3.7 10^3/uL (1.8-7.7); PLATELET COUNT, AUTOMATED 214 10^3/uL (150-450); RED BLOOD COUNT 4.63 10^6/uL (4.00-5.40); WHITE BLOOD COUNT 5.8 10^3/uL (4.0-10.0)
== END ==
LOC: M WUC 09:43
PROVIDERS: ATTEND Internal Medicine Nephrology
DX: N18.4 Chronic kidney disease, stage 4 (severe) (principal); N25.81 Secondary hyperparathyroidism of renal origin; D63.1 Anemia in chronic kidney disease

== ENCOUNTER → 2018-12-03 | Outpatient (CLI) | payer BC, MEDICARE ==
[2018-12-03 12:36] LABS: BASO # 0.1 10^3/uL (0.0-0.2); BASO % 0.8 % (0.0-1.0); EOS # 0.1 10^3/uL (0.0-0.5); EOS % 2.3 % (0.0-3.0); HEMATOCRIT 41.4 % (36.0-47.0); HEMOGLOBIN 13.1 g/dl (12.0-15.5); LYMPH # 1.1 10^3/uL (1.5-5.0); LYMPH % 18.1 % (24.0-44.0); MEAN CORPUSCULAR HEMOGLOBIN 28.6 pg (27.0-33.0); MEAN CORPUSCULAR HGB CONC 31.6 g/dl (32.0-36.5); MEAN CORPUSCULAR VOLUME 90.4 fl (80.0-96.0); MONO # 0.6 10^3/uL (0.0-0.8); MONO % 10.5 % (0.0-5.0); NEUTROPHILS # 4.1 10^3/uL (1.5-8.5); NEUTROPHILS % 67.5 % (36.0-66.0); PLATELET COUNT, AUTOMATED 185 10^3/uL (150-450); RED BLOOD COUNT 4.58 10^6/uL (4.00-5.40)
[2018-12-03 12:43] LABS: ALBUMIN 3.4 GM/DL (3.2-5.2); ALT/SGPT 21 U/L (12-78); BILIRUBIN,TOTAL 0.6 MG/DL (0.2-1.0); BLOOD UREA NITROGEN 24 MG/DL (7-18); CALCIUM LEVEL 9.4 MG/DL (8.8-10.2); CARBON DIOXIDE LEVEL 25 MEQ/L (21-32); CHLORIDE LEVEL 111 MEQ/L (98-107); CPK CREATINE PHOSPHOKINASE 43 U/L (26-192); CREATININE FOR GFR 1.31 MG/DL (0.55-1.30); GLOMERULAR FILTRATION RATE 42.7 (>39); GLUCOSE, FASTING 115 MG/DL (70-100); POTASSIUM SERUM 4.5 MEQ/L (3.5-5.1); SODIUM LEVEL 143 MEQ/L (136-145); TOTAL PROTEIN 6.3 GM/DL (6.4-8.2)
[2018-12-04 14:39] LABS: FOLATE > 24.0 NG/ML; TOTAL 25(OH) VITAMIN D 44.5 NG/ML (30.0-100.0)
[2018-12-04 14:57] LABS: VITAMIN B12 LEVEL 330 PG/ML
== END ==
LOC: M WUC 08:01
PROVIDERS: ATTEND Psychiatry & Neurology Neurology
DX: M60.9 Myositis, unspecified (principal)

== ENCOUNTER → 2019-04-17 | Outpatient (CLI) | payer BC, MEDICARE ==
[2019-04-17 20:14] LABS: BASO # 0.1 10^3/uL (0.0-0.2); BASO % 0.9 % (0.0-1.0); C REACTIVE PROTEIN QUANTITATIV 0.67 MG/DL (0.00-0.30); EOS # 0.2 10^3/uL (0.0-0.5); EOS % 4.2 % (0.0-3.0); HEMATOCRIT 40.5 % (36.0-47.0); HEMOGLOBIN 13.2 g/dl (12.0-15.5); LYMPH # 1.4 10^3/uL (1.5-5.0); LYMPH % 25.4 % (24.0-44.0); MEAN CORPUSCULAR HEMOGLOBIN 28.2 pg (27.0-33.0); MEAN CORPUSCULAR HGB CONC 32.6 g/dl (32.0-36.5); MEAN CORPUSCULAR VOLUME 86.5 fl (80.0-96.0); MONO # 0.5 10^3/uL (0.0-0.8); MONO % 9.6 % (0.0-5.0); NEUTROPHILS # 3.3 10^3/uL (1.5-8.5); NEUTROPHILS % 59.5 % (36.0-66.0); PLATELET COUNT, AUTOMATED 227 10^3/uL (150-450); RED BLOOD COUNT 4.68 10^6/uL (4.00-5.40); WHITE BLOOD COUNT 5.5 10^3/uL (4.0-10.0)
[2019-04-17 21:49] LABS: ERYTHROCYTE SEDIMENTATION RATE 21 mm/hr (0-30)
== END ==
LOC: M WUC 15:24
PROVIDERS: ATTEND Psychiatry & Neurology Neurology
DX: M60.9 Myositis, unspecified (principal)

== ENCOUNTER → 2019-04-17 | Outpatient (CLI) | payer BC, MEDICARE ==
[2019-04-17 20:11] LABS: ALBUMIN 3.8 GM/DL (3.2-5.2); CALCIUM LEVEL 9.8 MG/DL (8.8-10.2); CREATININE FOR GFR 1.66 MG/DL (0.55-1.30); GLOMERULAR FILTRATION RATE 32.4 (>39); PHOSPHORUS LEVEL 4.5 MG/DL (2.5-4.9); POTASSIUM SERUM 4.9 MEQ/L (3.5-5.1)
[2019-04-17 20:13] LABS: BASO # 0.1 10^3/uL (0.0-0.2); BASO % 1.1 % (0.0-1.0); EOS # 0.2 10^3/uL (0.0-0.5); EOS % 3.8 % (0.0-3.0); HEMATOCRIT 41.9 % (36.0-47.0); HEMOGLOBIN 13.4 g/dl (12.0-15.5); LYMPH # 1.4 10^3/uL (1.5-5.0); LYMPH % 25.9 % (24.0-44.0); MEAN CORPUSCULAR VOLUME 87.7 fl (80.0-96.0); MONO # 0.6 10^3/uL (0.0-0.8); NEUTROPHILS # 3.2 10^3/uL (1.5-8.5); NEUTROPHILS % 57.8 % (36.0-66.0); PLATELET COUNT, AUTOMATED 221 10^3/uL (150-450); RED BLOOD COUNT 4.78 10^6/uL (4.00-5.40); WHITE BLOOD COUNT 5.5 10^3/uL (4.0-10.0)
== END ==
LOC: M WUC 15:28
PROVIDERS: ATTEND Internal Medicine Nephrology
DX: N18.4 Chronic kidney disease, stage 4 (severe) (principal); N25.81 Secondary hyperparathyroidism of renal origin; D63.1 Anemia in chronic kidney disease

== ENCOUNTER → 2019-04-20 | Outpatient (REF) | payer BC, MEDICARE ==
[2019-04-20 18:10] LABS: APPEARANCE, URINE HAZY (CLEAR); BACTERIA, URINE AUTO 3+ (NEGATIVE); BILIRUBIN, URINE AUTO NEGATIVE (NEGATIVE); BLOOD, URINE BLOOD NEGATIVE (NEGATIVE); COLOR, URINE YELLOW (YELLOW); GLUCOSE, URINE (UA) AUTO NEGATIVE (NEGATIVE); KETONE, URINE AUTO NEGATIVE (NEGATIVE); LEUKOCYTE ESTERASE, URINE AUTO NEGATIVE (NEGATIVE); NITRITE, URINE AUTO NEGATIVE (NEGATIVE); PROTEIN, URINE AUTO NEGATIVE (NEGATIVE); RBC, URINE AUTO 2 /HPF (0-3); SPECIFIC GRAVITY URINE AUTO 1.018 (1.002-1.035); SQUAMOUS EPITHELIAL CELL UR AU 1 /HPF (0-6); UROBILINOGEN, URINE AUTO 0.2 mg/dL (0.0-2.0); WBC, URINE AUTO 2 /HPF (0-3)
== END ==
LOC: M LAB REF 17:13
PROVIDERS: ATTEND Internal Medicine Nephrology
DX: N18.4 Chronic kidney disease, stage 4 (severe) (principal); N25.81 Secondary hyperparathyroidism of renal origin; D63.1 Anemia in chronic kidney disease

== ENCOUNTER → 2019-10-04 | Outpatient (REF) | payer BC, MEDICARE ==
[~2019-10-04] MED LIST changes: +AMLO1TAB24 PO; -AMLO5TAB6 PO
== END ==
LOC: M LAB REF 17:47
PROVIDERS: ATTEND Dermatology
DX: D22.5 Melanocytic nevi of trunk (principal); L57.0 Actinic keratosis; C44.519 Basal cell carcinoma of skin of other part of trunk

== ENCOUNTER → 2019-10-14 | Outpatient (CLI) | payer BC, MEDICARE ==
[2019-10-14 17:38] LABS: BASO # 0.1 10^3/uL (0.0-0.2); BASO % 0.9 % (0.0-1.0); EOS # 0.2 10^3/uL (0.0-0.5); EOS % 2.9 % (0.0-3.0); HEMATOCRIT 42.7 % (36.0-47.0); HEMOGLOBIN 13.8 g/dl (12.0-15.5); LYMPH # 1.2 10^3/uL (1.5-5.0); LYMPH % 21.3 % (24.0-44.0); MEAN CORPUSCULAR HEMOGLOBIN 28.5 pg (27.0-33.0); MEAN CORPUSCULAR HGB CONC 32.3 g/dl (32.0-36.5); MONO # 0.5 10^3/uL (0.0-0.8); MONO % 9.1 % (0.0-5.0); NEUTROPHILS # 3.6 10^3/uL (1.5-8.5); NEUTROPHILS % 65.3 % (36.0-66.0); PLATELET COUNT, AUTOMATED 203 10^3/uL (150-450); RED BLOOD COUNT 4.85 10^6/uL (4.00-5.40); WHITE BLOOD COUNT 5.5 10^3/uL (4.0-10.0)
[2019-10-14 17:57] LABS: ALBUMIN 3.6 GM/DL (3.2-5.2); ALT/SGPT 28 U/L (12-78); BILIRUBIN,TOTAL 0.5 MG/DL (0.2-1.0); BLOOD UREA NITROGEN 24 MG/DL (7-18); CALCIUM LEVEL 9.5 MG/DL (8.8-10.2); CARBON DIOXIDE LEVEL 22 MEQ/L (21-32); CHLORIDE LEVEL 110 MEQ/L (98-107); CPK CREATINE PHOSPHOKINASE 66 U/L (26-192); CREATININE FOR GFR 1.42 MG/DL (0.55-1.30); GLOMERULAR FILTRATION RATE 38.8 (>39); GLUCOSE, FASTING 105 MG/DL (70-100); POTASSIUM SERUM 4.5 MEQ/L (3.5-5.1); SODIUM LEVEL 141 MEQ/L (136-145)
[2019-10-15 10:41] LABS: TOTAL 25(OH) VITAMIN D 99.2 NG/ML (30.0-100.0)
[2019-10-15 10:42] LABS: FOLATE > 24.0 NG/ML; VITAMIN B12 LEVEL 479 PG/ML
== END ==
LOC: M WUC 08:08
PROVIDERS: ATTEND Psychiatry & Neurology Neurology
DX: M60.9 Myositis, unspecified (principal)

== ENCOUNTER → 2019-10-14 | Outpatient (CLI) | payer BC, MEDICARE ==
[2019-10-14 17:38] LABS: BASO # 0.1 10^3/uL (0.0-0.2); BASO % 1.2 % (0.0-1.0); EOS # 0.2 10^3/uL (0.0-0.5); EOS % 2.8 % (0.0-3.0); HEMATOCRIT 43.4 % (36.0-47.0); HEMOGLOBIN 13.8 g/dl (12.0-15.5); LYMPH # 1.5 10^3/uL (1.5-5.0); LYMPH % 24.7 % (24.0-44.0); MEAN CORPUSCULAR HEMOGLOBIN 28.3 pg (27.0-33.0); MEAN CORPUSCULAR HGB CONC 31.8 g/dl (32.0-36.5); MEAN CORPUSCULAR VOLUME 89.1 fl (80.0-96.0); MONO # 0.5 10^3/uL (0.0-0.8); MONO % 8.7 % (0.0-5.0); NEUTROPHILS # 3.7 10^3/uL (1.5-8.5); NEUTROPHILS % 62.1 % (36.0-66.0); PLATELET COUNT, AUTOMATED 202 10^3/uL (150-450); RED BLOOD COUNT 4.87 10^6/uL (4.00-5.40)
[2019-10-14 17:46] LABS: AMORPHOUS SEDIMENT SMALL (NEGATIVE); APPEARANCE, URINE HAZY (CLEAR); BACTERIA, URINE AUTO NEGATIVE (NEGATIVE); BILIRUBIN, URINE AUTO NEGATIVE (NEGATIVE); BLOOD, URINE BLOOD NEGATIVE (NEGATIVE); COLOR, URINE YELLOW (YELLOW); GLUCOSE, URINE (UA) AUTO NEGATIVE (NEGATIVE); KETONE, URINE AUTO NEGATIVE (NEGATIVE); LEUKOCYTE ESTERASE, URINE AUTO NEGATIVE (NEGATIVE); MUCUS, URINE SMALL (NEGATIVE); NITRITE, URINE AUTO NEGATIVE (NEGATIVE); PROTEIN, URINE AUTO NEGATIVE (NEGATIVE); RBC, URINE AUTO 1 /HPF (0-3); SPECIFIC GRAVITY URINE AUTO 1.017 (1.002-1.035); SQUAMOUS EPITHELIAL CELL UR AU 0 /HPF (0-6); UROBILINOGEN, URINE AUTO 0.2 mg/dL (0.0-2.0); WBC, URINE AUTO 0 /HPF (0-3)
[2019-10-14 17:53] LABS: ALBUMIN 3.7 GM/DL (3.2-5.2); CALCIUM LEVEL 9.6 MG/DL (8.8-10.2); CREATININE FOR GFR 1.41 MG/DL (0.55-1.30); GLOMERULAR FILTRATION RATE 39.1 (>39); PHOSPHORUS LEVEL 4.2 MG/DL (2.5-4.9); POTASSIUM SERUM 4.4 MEQ/L (3.5-5.1)
[2019-10-15 10:41] LABS: PTH INTACT 35.4 PG/ML (18.5-88.0)
== END ==
LOC: M WUC 08:03
PROVIDERS: ATTEND Internal Medicine Nephrology
DX: N18.4 Chronic kidney disease, stage 4 (severe) (principal); N25.81 Secondary hyperparathyroidism of renal origin; D63.1 Anemia in chronic kidney disease

== ENCOUNTER → 2019-10-14 | Outpatient (CLI) | payer BC, MEDICARE ==
[2019-10-14 17:58] LABS: CHOLESTEROL RISK RATIO 5.772 (<5)
== END ==
LOC: M WUC 08:06
PROVIDERS: ATTEND Internal Medicine Cardiovascular Disease
DX: I25.10 Atherosclerotic heart disease of native coronary artery without angina pectoris (principal)

== ENCOUNTER → 2020-01-01 | Outpatient (CLI) | payer BC, MEDICARE ==
[2020-01-01 10:10] LABS: BASO # 0.1 10^3/uL (0.0-0.2); BASO % 1.1 % (0.0-1.0); EOS # 0.2 10^3/uL (0.0-0.5); EOS % 3.7 % (0.0-3.0); HEMATOCRIT 42.3 % (36.0-47.0); HEMOGLOBIN 13.9 g/dl (12.0-15.5); LYMPH # 1.5 10^3/uL (1.5-5.0); LYMPH % 32.3 % (24.0-44.0); MEAN CORPUSCULAR HEMOGLOBIN 29.3 pg (27.0-33.0); MEAN CORPUSCULAR HGB CONC 32.9 g/dl (32.0-36.5); MEAN CORPUSCULAR VOLUME 89.2 fl (80.0-96.0); MONO # 0.4 10^3/uL (0.0-0.8); MONO % 9.4 % (0.0-5.0); NEUTROPHILS # 2.4 10^3/uL (1.5-8.5); NEUTROPHILS % 53.3 % (36.0-66.0); PLATELET COUNT, AUTOMATED 184 10^3/uL (150-450); RED BLOOD COUNT 4.74 10^6/uL (4.00-5.40); WHITE BLOOD COUNT 4.6 10^3/uL (4.0-10.0)
[2020-01-01 10:22] LABS: ALBUMIN 3.7 GM/DL (3.2-5.2); CALCIUM LEVEL 9.5 MG/DL (8.8-10.2); CREATININE FOR GFR 1.35 MG/DL (0.55-1.30); GLOMERULAR FILTRATION RATE 41.2 (>39); PHOSPHORUS LEVEL 3.6 MG/DL (2.5-4.9); POTASSIUM SERUM 4.1 MEQ/L (3.5-5.1)
== END ==
LOC: M WUC 08:03
PROVIDERS: ATTEND Internal Medicine Nephrology
DX: N18.30 Chronic kidney disease, stage 3 unspecified (principal); D63.1 Anemia in chronic kidney disease

== ENCOUNTER → 2020-01-01 | Outpatient (CLI) | payer BC, MEDICARE ==
[2020-01-01 10:21] LABS: CALCIUM LEVEL 9.3 MG/DL (8.8-10.2); CREATININE FOR GFR 1.29 MG/DL (0.55-1.30); GLOMERULAR FILTRATION RATE 43.4 (>39); POTASSIUM SERUM 4.2 MEQ/L (3.5-5.1)
== END ==
LOC: M WUC 08:06
PROVIDERS: ATTEND Physician Assistant
DX: M33.12 Other dermatomyositis with myopathy (principal)

== ENCOUNTER → 2020-01-02 | Outpatient (REF) | payer BC, MEDICARE ==
[2020-01-02 18:05] LABS: ALT/SGPT 37 U/L (12-78); BILIRUBIN,DIRECT < 0.1 MG/DL (0.0-0.2); BILIRUBIN,TOTAL 0.3 MG/DL (0.2-1.0); C REACTIVE PROTEIN QUANTITATIV 0.46 MG/DL (0.00-0.30); CPK CREATINE PHOSPHOKINASE 69 U/L (26-192); TOTAL PROTEIN 7.2 GM/DL (6.4-8.2)
== END ==
LOC: M SFHCRHEU 15:07
PROVIDERS: ATTEND Internal Medicine
DX: M33.90 Dermatopolymyositis, unspecified, organ involvement unspecified (principal)

== ENCOUNTER → 2020-01-03 | Outpatient (CLI) | payer BC, MEDICARE, OTHER ==
[~2020-01-03] MED LIST changes: +GASTROGRAFIN SOLUTION 30ML (Q9963) As Ordered ONE; +ISOVUE-370 76% 100ML VIAL As Ordered ONE
--- NOTE | 2020-01-08 08:58 | REP ---
CT CHEST WITH INTRAVENOUS (IV) CONTRAST HISTORY: Annual surveillance. Renal carcinoma. Dermatomyositis with myopathy. CT CONTRAST DOSE: 100 mL of intravenous Isovue-[address] STUDY: 12/14/2018. CT FINDINGS: There are minimal areas of linear fibrosis in the bases bilaterally, unchanged. No pulmonary nodule has developed. No mass or infiltrate is seen. No pleural or pericardial effusion is seen. No evidence of hilar or mediastinal mass or adenopathy is observed. There is fairly heavy vascular calcification in the coronary artery distribution bilaterally unchanged. No adrenal abnormality is seen. No bony destructive lesion. IMPRESSION: Vascular calcification in the coronary artery distribution again noted. Otherwise no acute disease. No evidence of pulmonary metastasis or interstitial lung disease seen. MTDD
--- NOTE | 2020-01-08 08:59 | REP ---
CT ABDOMEN AND PELVIS WITH INTRAVENOUS (IV) AND ORAL CONTRAST HISTORY: Annual surveillance. History of renal cell carcinoma and dermatomyositis. COMPARISON: Abdominal CT study from 12/04/2017. CT CONTRAST DOSE: 100 mL of intravenous Isovue-370. CT FINDINGS: There is mild diffuse fatty infiltration of the liver unchanged. No focal hepatic lesion is seen. No liver mass lesion. Spleen is normal in size and homogeneous in texture. The left kidney is surgically absent. There is no evidence of recurrent mass or adenopathy in the nephrectomy bed. No right renal mass is observed. No hydronephrosis is seen. No abnormality is noted in the gallbladder or the pancreas. Normal adrenal glands are seen bilaterally. There is a supraumbilical ventral hernia transmitting omental fat through an anterior abdominal wall defect, which measures 4 cm [id number] dimension. Small and large bowel loops are unremarkable in the abdomen. There is moderate sigmoid colon diverticulosis visible on the pelvic CT. There is some diverticulosis in the distal descending colon. No CT evidence of diverticulitis seen. Uterus is surgically absent. No adnexal abnormality is seen. No pelvic adenopathy or mass lesion is observed. No evidence of bowel obstruction. Bone window settings how no bony destructive lesion. There are degenerative spondylosis changes in the lumbosacral spine. IMPRESSION: No evidence of recurrent mass, metastasis, or adenopathy. Mild diffuse fatty infiltration of the liver. There is a mucosal clip along the anterior wall of the stomach. Ventral hernia transmits a small amount of abdominal fat. There is extensive left colonic diverticulosis. MTDD
== END ==
LOC: M RAD 12:47
PROVIDERS: ATTEND Physician Assistant
DX: M33.12 Other dermatomyositis with myopathy (principal); Z85.528 Personal history of other malignant neoplasm of kidney
CPT/HCPCS: 71260; 74177; Q9963; Q9967

== ENCOUNTER → 2020-02-25 | Outpatient (REF) | payer BC, MEDICARE ==
[~2020-02-25] MED LIST changes: -GASTROGRAFIN SOLUTION 30ML (Q9963) As Ordered ONE; -ISOVUE-370 76% 100ML VIAL As Ordered ONE
== END ==
LOC: M LAB REF 16:39
PROVIDERS: ATTEND Dermatology
DX: D49.2 Neoplasm of unspecified behavior of bone, soft tissue, and skin (principal)

== ENCOUNTER → 2020-06-18 | Outpatient (CLI) | payer BC, MEDICARE ==
[~2020-06-18] MED LIST changes: +FOLI400T13 PO
== END ==
LOC: M LABSMTC 11:08
PROVIDERS: ATTEND Anesthesiology
DX: Z01.812 Encounter for preprocedural laboratory examination (principal); Z20.822 Contact with and (suspected) exposure to COVID-19

== ENCOUNTER 2020-06-23 11:53 | Day surgery (SDC) | payer BC, MEDICARE ==
[~2020-06-23] VITALS: Ht 157.5 cm; Wt 78.5 kg
[2020-06-23] MEDS ORDERED: ZETI10TA16 PO (12:54)
[2020-06-23] MEDS ORDERED: fentaNYL 100 MCG/2 ML INJECTION (J3010) As Ordered ONE (13:00)
--- NOTE | 2020-06-23 13:28 | ROOR ---
Patient Name: Bria Ramirez Procedure Date: 06/23/2020 1:11 PM Date of : 1950 Age: 70 Room: [facility] Gender: Female Note Status: Finalized Procedure: Upper Endoscopy + Biopsies Indications: Heartburn, Exclusion of Prasad's esophagus Providers: Jalen Lantigua MD Referring MD: Dougie Medeiros Requesting Provider: Medicines: Monitored Anesthesia Care Complications: No immediate complications. Procedure: Pre-Anesthesia Assessment: - The heart rate, respiratory rate, oxygen saturations, blood pressure, adequacy of pulmonary ventilation, and response to care were monitored throughout the procedure. The Endoscope was introduced through the mouth, and advanced to the second part of duodenum. The upper GI endoscopy was accomplished without difficulty. The patient tolerated the procedure well. Findings: The Z-line was regular and was found 40 cm from the incisors. Multiple biopsies were obtained with cold forceps for evaluation to rule out Prasad's Esophagus randomly at the gastroesophageal junction. Scattered mild inflammation characterized by erosions was found in the gastric antrum. The exam of the duodenum was otherwise normal. Impression: - Z-line regular, 40 cm from the incisors. - Gastritis. - Multiple biopsies were obtained at the gastroesophageal junction. - The examination was otherwise normal. Recommendation: - Patient has a contact number available for emergencies. The signs and symptoms of potential delayed complications were discussed with the patient. Return to normal activities tomorrow. Written discharge instructions were provided to the patient. - Resume previous diet. - Discharge patient to home. - Follow an antireflux regimen. - Continue present medications. - Await pathology results. - Telephone GI clinic for pathology results in 1 week. - Return to referring physician. - The findings and recommendations were discussed with the patient. Procedure Code(s): --- Professional --- 66633, Esophagogastroduodenoscopy, flexible, transoral; with biopsy, single or multiple Diagnosis Code(s): --- Professional --- K29.70, Gastritis, unspecified, without bleeding R12, Heartburn CPT copyright 2019 [employer]. All rights reserved. The codes documented in this report are preliminary and upon chartered accountant review may be revised to meet current compliance requirements. Jalen Lantigua MD Jalen Lantigua MD 06/23/2020 1:28:25 PM Electronically signed by Jalen Lantigua MD Number of Addenda: 0 Note Initiated On: 06/23/2020 1:11 PM Estimated Blood Loss: Estimated blood loss: none.
[2020-06-23] MEDS ORDERED: propofoL 200 MG/20 ML VIAL As Ordered ONE (13:43)
--- NOTE | 2020-06-23 13:51 | ROOR ---
Patient Name: Bria Ramirez Procedure Date: 06/23/2020 1:14 PM Date of : 1950 Age: 70 Room: [facility] Gender: Female Note Status: Finalized Procedure: Total Colonoscopy to Cecum + Cold Snare Polypectomy + Hemoclips Indications: Screening for colorectal malignant neoplasm Providers: Jalen Lantigua MD Referring MD: Dougie Medeiros Requesting Provider: Medicines: Monitored Anesthesia Care Complications: No immediate complications. Procedure: Pre-Anesthesia Assessment: - The heart rate, respiratory rate, oxygen saturations, blood pressure, adequacy of pulmonary ventilation, and response to care were monitored throughout the procedure. The Colonoscope was introduced through the anus and advanced to the cecum, identified by appendiceal orifice and ileocecal valve. The colonoscopy was performed without difficulty. The patient tolerated the procedure well. The quality of the bowel preparation was good. Findings: The perianal and digital rectal examinations were normal. Non-bleeding internal hemorrhoids were found during retroflexion. The hemorrhoids were small and Grade I (internal hemorrhoids that do not prolapse). Multiple small and large-mouthed diverticula were found in the recto-sigmoid colon, sigmoid colon and descending colon. A small polyp was found in the cecum. The polyp was sessile. The polyp was removed with a cold snare. Resection and retrieval were complete. To prevent bleeding after the polypectomy, one hemostatic clip was successfully placed (MR conditional). There was no bleeding at the end of the procedure. The exam was otherwise without abnormality on direct and retroflexion views. Impression: - Non-bleeding internal hemorrhoids. - Diverticulosis in the recto-sigmoid colon, in the sigmoid colon and in the descending colon. - One small polyp in the cecum, removed with a cold snare. Resected and retrieved. Clip (MR conditional) was placed. - The examination was otherwise normal on direct and retroflexion views. - The exam was otherwise normal to the cecum. Recommendation: - Patient has a contact number available for emergencies. The signs and symptoms of potential delayed complications were discussed with the patient. Return to normal activities tomorrow. Written discharge instructions were provided to the patient. - High fiber diet. - Discharge patient to home. - Await pathology results. - Telephone GI clinic for pathology results in 1 week. - Repeat colonoscopy PRN for screening purposes. - Return to referring physician. - The findings and recommendations were discussed with the patient. Procedure Code(s): --- Professional --- 27877, Colonoscopy, flexible; with removal of tumor(s), polyp(s), or other lesion(s) by snare technique Diagnosis Code(s): --- Professional --- Z12.11, Encounter for screening for malignant neoplasm of colon K64.0, First degree hemorrhoids K63.5, Polyp of colon K57.30, Diverticulosis of large intestine without perforation or abscess without bleeding CPT copyright 2019 [employer]. All rights reserved. The codes documented in this report are preliminary and upon greenskeeper laborer review may be revised to meet current compliance requirements. Jalen Lantigua MD Jalen Lantigua MD 06/23/2020 1:51:13 PM Electronically signed by Jalen Lantigua MD Number of Addenda: 0 Note Initiated On: 06/23/2020 1:14 PM Estimated Blood Loss: Estimated blood loss: none.
[2020-06-23 14:10] VITALS: BP 145/70
[2020-06-23] MEDS ORDERED: NS 1,000 ML IV ONE (15:10)
== END 2020-06-23 14:25 | disposition home or self-care (01) ==
LOC: M OPP 11:53
PROVIDERS: ATTEND Internal Medicine Gastroenterology
DX: K51.40 Inflammatory polyps of colon without complications (principal); K64.0 First degree hemorrhoids; K57.30 Diverticulosis of large intestine without perforation or abscess without bleeding; K29.70 Gastritis, unspecified, without bleeding; R12 Heartburn; Z95.5 Presence of coronary angioplasty implant and graft; Z86.79 Personal history of other diseases of the circulatory system; Z79.82 Long term (current) use of aspirin; Z79.899 Other long term (current) drug therapy; M33.10 Other dermatomyositis, organ involvement unspecified; Z85.528 Personal history of other malignant neoplasm of kidney
CPT/HCPCS: 43239; 45385; 88305; J3010

== ENCOUNTER → 2020-09-09 | Outpatient (CLI) | payer BC, MEDICARE ==
[~2020-09-09] MED LIST changes: +ZETI10TA16 PO
[2020-09-09 11:48] LABS: BASO # 0.1 10^3/uL (0.0-0.2); BASO % 1.4 % (0.0-1.0); EOS # 0.2 10^3/uL (0.0-0.5); EOS % 3.9 % (0.0-3.0); HEMATOCRIT 42.4 % (36.0-47.0); HEMOGLOBIN 13.9 g/dl (12.0-15.5); LYMPH # 1.3 10^3/uL (1.5-5.0); LYMPH % 29.5 % (24.0-44.0); MEAN CORPUSCULAR HEMOGLOBIN 28.8 pg (27.0-33.0); MEAN CORPUSCULAR HGB CONC 32.8 g/dl (32.0-36.5); MONO # 0.4 10^3/uL (0.0-0.8); MONO % 9.1 % (2.0-8.0); NEUTROPHILS # 2.5 10^3/uL (1.5-8.5); NEUTROPHILS % 55.9 % (36.0-66.0); PLATELET COUNT, AUTOMATED 192 10^3/uL (150-450); RED BLOOD COUNT 4.82 10^6/uL (4.00-5.40); WHITE BLOOD COUNT 4.4 10^3/uL (4.0-10.0)
[2020-09-09 12:18] LABS: ERYTHROCYTE SEDIMENTATION RATE 13 mm/hr (0-30)
[2020-09-09 12:24] LABS: ALBUMIN 3.8 GM/DL (3.2-5.2); BILIRUBIN,DIRECT 0.2 MG/DL (0.0-0.2); BILIRUBIN,TOTAL 0.8 MG/DL (0.2-1.0); C REACTIVE PROTEIN QUANTITATIV 0.49 MG/DL (0.00-0.30); CALCIUM LEVEL 9.6 MG/DL (8.8-10.2); CREATININE FOR GFR 1.36 MG/DL (0.55-1.30); GLOMERULAR FILTRATION RATE 40.7 (>39); POTASSIUM SERUM 4.5 MEQ/L (3.5-5.1); TOTAL PROTEIN 6.8 GM/DL (6.4-8.2)
== END ==
LOC: M WUC 08:10
PROVIDERS: ATTEND Internal Medicine
DX: M33.90 Dermatopolymyositis, unspecified, organ involvement unspecified (principal)

== ENCOUNTER → 2020-09-09 | Outpatient (CLI) | payer BC, MEDICARE ==
[2020-09-09 11:49] LABS: BASO % 0.9 % (0.0-1.0); EOS # 0.2 10^3/uL (0.0-0.5); EOS % 4.8 % (0.0-3.0); HEMOGLOBIN 13.9 g/dl (12.0-15.5); LYMPH # 1.3 10^3/uL (1.5-5.0); LYMPH % 29.2 % (24.0-44.0); MEAN CORPUSCULAR HEMOGLOBIN 28.9 pg (27.0-33.0); MEAN CORPUSCULAR HGB CONC 32.3 g/dl (32.0-36.5); MEAN CORPUSCULAR VOLUME 89.4 fl (80.0-96.0); MONO # 0.5 10^3/uL (0.0-0.8); MONO % 10.3 % (2.0-8.0); NEUTROPHILS # 2.4 10^3/uL (1.5-8.5); NEUTROPHILS % 54.6 % (36.0-66.0); PLATELET COUNT, AUTOMATED 193 10^3/uL (150-450); RED BLOOD COUNT 4.81 10^6/uL (4.00-5.40); WHITE BLOOD COUNT 4.4 10^3/uL (4.0-10.0)
[2020-09-09 12:40] LABS: ALBUMIN 3.9 GM/DL (3.2-5.2); BILIRUBIN,TOTAL 0.7 MG/DL (0.2-1.0); CALCIUM LEVEL 9.8 MG/DL (8.8-10.2); CHOLESTEROL RISK RATIO 5.625 (<5); CREATININE FOR GFR 1.38 MG/DL (0.55-1.30); FREE T4 0.98 NG/DL (0.76-1.46); POTASSIUM SERUM 4.4 MEQ/L (3.5-5.1); TOTAL 25(OH) VITAMIN D 81.2 NG/ML (30.0-100.0); TOTAL PROTEIN 6.8 GM/DL (6.4-8.2)
[2020-09-09 15:51] LABS: HEMOGLOBIN A1c 5.3 %
== END ==
LOC: M WUC 08:05
PROVIDERS: ATTEND Physician Assistant
DX: E78.5 Hyperlipidemia, unspecified (principal); M33.12 Other dermatomyositis with myopathy; I25.10 Atherosclerotic heart disease of native coronary artery without angina pectoris

== ENCOUNTER → 2021-03-02 | Outpatient (CLI) | payer BC, MEDICARE ==
[2021-03-02 11:01] LABS: CALCIUM LEVEL 9.5 MG/DL (8.8-10.2); CREATININE FOR GFR 1.29 MG/DL (0.55-1.30); GLOMERULAR FILTRATION RATE 43.1 (>39); POTASSIUM SERUM 4.8 MEQ/L (3.5-5.1)
== END ==
LOC: M WUC 08:12
PROVIDERS: ATTEND Physician Assistant
DX: M33.12 Other dermatomyositis with myopathy (principal); Z85.528 Personal history of other malignant neoplasm of kidney

== ENCOUNTER → 2021-03-04 | Outpatient (CLI) | payer BC, MEDICARE ==
[~2021-03-04] MED LIST changes: +GASTROGRAFIN SOLUTION 30ML (Q9963) ONE; +ISOVUE-370 76% 100ML VIAL ONE
--- NOTE | 2021-03-05 07:08 | REP ---
INDICATION: HX MALIGNANCY, R/O COMPARISON: 01/03/2020, 12/04/2017 TECHNIQUE: Axial contrast enhanced images from the thoracic inlet to the upper abdomen with coronal and sagittal reformations using 100 ml Isovue [address] intravenous [address] examination was performed using the following dose reduction techniques: Automated exposure control, adjustment of mA and/or kv according to the patient's size, and use of iterative reconstruction technique. FINDINGS: Lung french are well aerated and clear. No acute consolidation, suspicious nodule or mass. No effusion. No pneumothorax. Tracheobronchial tree is patent. No adenopathy. The mediastinum demonstrates stable atherosclerotic changes to the thoracic aorta and coronary arteries without aortic aneurysm or dissection. No cardiomegaly or pericardial effusion. Thyroid gland is normal by CT evaluation. Musculoskeletal structures demonstrate degenerative changes without acute osseous abnormality. IMPRESSION: Normal contrast-enhanced chest CT. No acute mediastinal or pleuroparenchymal process. No evidence for metastatic disease. <Electronically signed by Manny Strange > 03/05/21 [id number]
--- NOTE | 2021-03-05 07:30 | REP ---
INDICATION: HX MALIGNANCY, R/O. COMPARISON: 01/03/2020, 12/04/2017 TECHNIQUE: Axial contrast-enhanced images from the lung bases to the pubic symphysis using oral and 100 cc Isovue 370 intravenous contrast material. Delayed images of the abdomen along with coronal and sagittal reformations obtained. This CT examination was performed using the following dose reduction techniques: Automated exposure control, adjustment of mA and/or kv according to the patient's size, and the use of iterative reconstruction technique. FINDINGS: Liver, spleen, pancreas, gallbladder, bilateral adrenal glands and right kidney are normal. Incidental 1 cm and subcentimeter right renal cysts noted. Patient is noted to be status post left nephrectomy without pathologic changes in the left renal fossa. The enteric system is without evidence for obstruction or acute inflammatory process. Colonic and sigmoid diverticulosis noted without acute diverticulitis. Multiple fat containing anterior ventral hernias noted without acute inflammatory changes.. The stomach demonstrates changes along the anterior gastric wall and overlying anterior abdominal wall with 2 surgical clips suggesting possible prior gastrostomy or generalized postsurgical changes from laparotomy. Pelvis demonstrates normal bladder and evidence for prior hysterectomy. No ascites. No free air. No intraperitoneal or retroperitoneal adenopathy. Abdominal aorta and vasculature appear normal. Musculoskeletal structures are intact and without acute osseous abnormality. IMPRESSION: No acute abdominopelvic pathology appreciated. Chronic/benign stable changes similar to prior examinations. <Electronically signed by Manny Strange > 03/05/21 0727
== END ==
LOC: M PLAIMG 11:22
PROVIDERS: ATTEND Physician Assistant
DX: I25.10 Atherosclerotic heart disease of native coronary artery without angina pectoris (principal); Z85.528 Personal history of other malignant neoplasm of kidney; M33.12 Other dermatomyositis with myopathy; N28.1 Cyst of kidney, acquired; Z90.5 Acquired absence of kidney; K43.9 Ventral hernia without obstruction or gangrene; I70.0 Atherosclerosis of aorta
CPT/HCPCS: 71260; 74177; Q9963; Q9967

== ENCOUNTER → 2021-08-25 | Outpatient (CLI) | payer BC, MEDICARE ==
[~2021-08-25] MED LIST changes: -GASTROGRAFIN SOLUTION 30ML (Q9963) ONE; -ISOVUE-370 76% 100ML VIAL ONE
[2021-08-25 10:30] LABS: BASO # 0.1 10^3/uL (0.0-0.2); BASO % 1.4 % (0.0-1.0); EOS # 0.2 10^3/uL (0.0-0.5); EOS % 3.4 % (0.0-3.0); HEMATOCRIT 43.4 % (36.0-47.0); LYMPH # 1.3 10^3/uL (1.5-5.0); LYMPH % 25.8 % (24.0-44.0); MEAN CORPUSCULAR HEMOGLOBIN 29.1 pg (27.0-33.0); MEAN CORPUSCULAR HGB CONC 32.3 g/dl (32.0-36.5); MEAN CORPUSCULAR VOLUME 90.2 fl (80.0-96.0); MONO # 0.5 10^3/uL (0.0-0.8); MONO % 9.7 % (2.0-8.0); NEUTROPHILS % 59.1 % (36.0-66.0); PLATELET COUNT, AUTOMATED 183 10^3/uL (150-450); RED BLOOD COUNT 4.81 10^6/uL (4.00-5.40); WHITE BLOOD COUNT 5.1 10^3/uL (4.0-10.0)
[2021-08-25 11:22] LABS: ALBUMIN 3.7 GM/DL (3.2-5.2); CALCIUM LEVEL 9.6 MG/DL (8.8-10.2); CREATININE FOR GFR 1.18 MG/DL (0.55-1.30); GLOMERULAR FILTRATION RATE 47.8 (>39); PHOSPHORUS LEVEL 3.3 MG/DL (2.5-4.9); POTASSIUM SERUM 4.4 MEQ/L (3.5-5.1)
== END ==
LOC: M WUC 08:40
PROVIDERS: ATTEND Internal Medicine Nephrology
DX: N18.32 Chronic kidney disease, stage 3b (principal); D63.1 Anemia in chronic kidney disease

== ENCOUNTER → 2021-08-25 | Outpatient (CLI) | payer BC, MEDICARE ==
[2021-08-25 11:40] LABS: CHOLESTEROL RISK RATIO 5.456 (<5)
== END ==
LOC: M WUC 08:36
PROVIDERS: ATTEND Physician Assistant
DX: E78.5 Hyperlipidemia, unspecified (principal)

== ENCOUNTER → 2021-08-25 | Outpatient (CLI) | payer BC, MEDICARE ==
[2021-08-25 10:30] LABS: BASO # 0.1 10^3/uL (0.0-0.2); EOS # 0.2 10^3/uL (0.0-0.5); EOS % 3.5 % (0.0-3.0); LYMPH # 1.3 10^3/uL (1.5-5.0); MEAN CORPUSCULAR HEMOGLOBIN 29.5 pg (27.0-33.0); MEAN CORPUSCULAR HGB CONC 32.6 g/dl (32.0-36.5); MEAN CORPUSCULAR VOLUME 90.5 fl (80.0-96.0); MONO # 0.5 10^3/uL (0.0-0.8); MONO % 9.4 % (2.0-8.0); NEUTROPHILS % 59.7 % (36.0-66.0); PLATELET COUNT, AUTOMATED 191 10^3/uL (150-450); RED BLOOD COUNT 4.75 10^6/uL (4.00-5.40); WHITE BLOOD COUNT 5.1 10^3/uL (4.0-10.0)
[2021-08-25 11:36] LABS: ALBUMIN 3.8 GM/DL (3.2-5.2); ALT/SGPT 33 U/L (12-78); BILIRUBIN,TOTAL 0.7 MG/DL (0.2-1.0); BLOOD UREA NITROGEN 19 MG/DL (7-18); CALCIUM LEVEL 9.9 MG/DL (8.8-10.2); CARBON DIOXIDE LEVEL 25 MEQ/L (21-32); CHLORIDE LEVEL 109 MEQ/L (98-107); CREATININE FOR GFR 1.15 MG/DL (0.55-1.30); GLOMERULAR FILTRATION RATE 49.2 (>39); GLUCOSE, FASTING 115 MG/DL (70-100); POTASSIUM SERUM 4.4 MEQ/L (3.5-5.1); SODIUM LEVEL 139 MEQ/L (136-145); TOTAL PROTEIN 6.6 GM/DL (6.4-8.2)
[2021-08-25 11:47] LABS: VITAMIN B12 LEVEL 434 PG/ML
[2021-08-25 11:49] LABS: FOLATE > 24.0 NG/ML
== END ==
LOC: M WUC 08:42
PROVIDERS: ATTEND Psychiatry & Neurology Neurology
DX: M33.90 Dermatopolymyositis, unspecified, organ involvement unspecified (principal)

== ENCOUNTER → 2021-08-27 | Outpatient (REF) | payer BC, MEDICARE, OTHER | LOC: M SFHCDERM 17:36 | PROVIDERS: ATTEND Nurse Practitioner Family | DX: J34.89 Other specified disorders of nose and nasal sinuses (principal) ==

== ENCOUNTER → 2021-09-02 | Outpatient (CLI) | payer BC, MEDICARE, OTHER | LOC: M WHC 13:53 | PROVIDERS: ATTEND Physician Assistant | DX: Z12.31 Encounter for screening mammogram for malignant neoplasm of breast (principal); M81.0 Age-related osteoporosis without current pathological fracture; Z80.0 Family history of malignant neoplasm of digestive organs; Z85.9 Personal history of malignant neoplasm, unspecified ==

== ENCOUNTER → 2022-01-06 | Outpatient (REF) | payer BC, MEDICARE, OTHER ==
[2022-01-06 17:30] LABS: BASO # 0.1 10^3/uL (0.0-0.2); BASO % 0.7 % (0.0-1.0); EOS # 0.2 10^3/uL (0.0-0.5); HEMATOCRIT 41.3 % (36.0-47.0); HEMOGLOBIN 13.7 g/dl (12.0-15.5); LYMPH % 28.7 % (24.0-44.0); MEAN CORPUSCULAR HEMOGLOBIN 29.5 pg (27.0-33.0); MEAN CORPUSCULAR HGB CONC 33.2 g/dl (32.0-36.5); MEAN CORPUSCULAR VOLUME 88.8 fl (80.0-96.0); MONO # 0.6 10^3/uL (0.0-0.8); MONO % 8.5 % (2.0-8.0); NEUTROPHILS % 58.4 % (36.0-66.0); PLATELET COUNT, AUTOMATED 189 10^3/uL (150-450); RED BLOOD COUNT 4.65 10^6/uL (4.00-5.40); WHITE BLOOD COUNT 6.9 10^3/uL (4.0-10.0)
[2022-01-06 18:00] LABS: BILIRUBIN,TOTAL 0.5 MG/DL (0.2-1.0); C REACTIVE PROTEIN QUANTITATIV 0.51 MG/DL (0.00-0.30); CALCIUM LEVEL 9.9 MG/DL (8.8-10.2); CREATININE FOR GFR 1.16 MG/DL (0.55-1.30); GLOMERULAR FILTRATION RATE 48.8 (>39); POTASSIUM SERUM 4.4 MEQ/L (3.5-5.1); TOTAL PROTEIN 7.2 GM/DL (6.4-8.2)
[2022-01-06 18:25] LABS: ERYTHROCYTE SEDIMENTATION RATE 12 mm/hr (0-30)
== END ==
LOC: M SFHCRHEU 14:36
PROVIDERS: ATTEND Internal Medicine Rheumatology
DX: M33.90 Dermatopolymyositis, unspecified, organ involvement unspecified (principal); Z79.899 Other long term (current) drug therapy

== ENCOUNTER → 2022-09-20 | Outpatient (CLI) | payer BC, MEDICARE, OTHER ==
[2022-09-20 10:47] LABS: BASO # 0.1 10^3/uL (0.0-0.2); EOS # 0.1 10^3/uL (0.0-0.5); EOS % 2.9 % (0.0-3.0); HEMATOCRIT 41.4 % (36.0-47.0); HEMOGLOBIN 13.6 g/dl (12.0-15.5); LYMPH # 1.3 10^3/uL (1.5-5.0); MEAN CORPUSCULAR HGB CONC 32.9 g/dl (32.0-36.5); MEAN CORPUSCULAR VOLUME 91.2 fl (80.0-96.0); MONO # 0.4 10^3/uL (0.0-0.8); MONO % 9.1 % (2.0-8.0); NEUTROPHILS # 2.8 10^3/uL (1.5-8.5); NEUTROPHILS % 59.2 % (36.0-66.0); PLATELET COUNT, AUTOMATED 171 10^3/uL (150-450); RED BLOOD COUNT 4.54 10^6/uL (4.00-5.40); WHITE BLOOD COUNT 4.8 10^3/uL (4.0-10.0)
[2022-09-20 11:08] LABS: ALBUMIN 3.7 G/DL (3.2-5.2); CALCIUM LEVEL 9.2 MG/DL (8.3-10.6); CREATININE FOR GFR 1.31 MG/DL (0.55-1.30); GLOMERULAR FILTRATION RATE 42.3 (>39); POTASSIUM SERUM 4.3 MMOL/L (3.5-5.1); THYROID STIMULATING HORMONE 2.86 uIU/ML (0.55-4.78); TOTAL PROTEIN 6.2 G/DL (5.7-8.2)
[2022-09-20 11:09] LABS: FOLATE 23.66 NG/ML (>5.4)
== END ==
LOC: M WUC 08:07
PROVIDERS: ATTEND Psychiatry & Neurology Neurology
DX: E03.9 Hypothyroidism, unspecified (principal); E53.8 Deficiency of other specified B group vitamins; G72.9 Myopathy, unspecified

== ENCOUNTER → 2022-09-20 | Outpatient (CLI) | payer BC, MEDICARE, OTHER ==
[2022-09-20 10:50] LABS: BASO # 0.1 10^3/uL (0.0-0.2); EOS # 0.2 10^3/uL (0.0-0.5); EOS % 3.2 % (0.0-3.0); HEMATOCRIT 40.9 % (36.0-47.0); HEMOGLOBIN 13.5 g/dl (12.0-15.5); LYMPH # 1.3 10^3/uL (1.5-5.0); LYMPH % 26.9 % (24.0-44.0); MEAN CORPUSCULAR HEMOGLOBIN 29.7 pg (27.0-33.0); MEAN CORPUSCULAR VOLUME 89.9 fl (80.0-96.0); MONO # 0.5 10^3/uL (0.0-0.8); MONO % 9.5 % (2.0-8.0); NEUTROPHILS # 2.9 10^3/uL (1.5-8.5); NEUTROPHILS % 58.4 % (36.0-66.0); PLATELET COUNT, AUTOMATED 165 10^3/uL (150-450); RED BLOOD COUNT 4.55 10^6/uL (4.00-5.40)
[2022-09-20 11:09] LABS: ALBUMIN 3.7 G/DL (3.2-5.2); CALCIUM LEVEL 9.3 MG/DL (8.3-10.6); CHOLESTEROL RISK RATIO 4.09 (<5); CREATININE FOR GFR 1.31 MG/DL (0.55-1.30); GLOMERULAR FILTRATION RATE 42.3 (>39); HDL CHOLESTEROL 47.1 MG/DL (>40); LDL CHOLESTEROL 107.1 MG/DL (<100); NON-HDL-C 145.9 MG/DL; POTASSIUM SERUM 4.2 MMOL/L (3.5-5.1); TOTAL PROTEIN 6.3 G/DL (5.7-8.2)
== END ==
LOC: M WUC 08:05
PROVIDERS: ATTEND Physician Assistant
DX: E78.5 Hyperlipidemia, unspecified (principal)

== ENCOUNTER → 2022-10-20 | Outpatient (CLI) | payer BC, MEDICARE, OTHER ==
[2022-10-20 16:32] LABS: BASO # 0.1 10^3/uL (0.0-0.2); BASO % 0.8 % (0.0-1.0); EOS # 0.2 10^3/uL (0.0-0.5); EOS % 2.6 % (0.0-3.0); HEMATOCRIT 42.9 % (36.0-47.0); HEMOGLOBIN 14.1 g/dl (12.0-15.5); LYMPH # 2.2 10^3/uL (1.5-5.0); MEAN CORPUSCULAR HEMOGLOBIN 29.9 pg (27.0-33.0); MEAN CORPUSCULAR HGB CONC 32.9 g/dl (32.0-36.5); MEAN CORPUSCULAR VOLUME 91.1 fl (80.0-96.0); MONO # 0.9 10^3/uL (0.0-0.8); NEUTROPHILS # 5.3 10^3/uL (1.5-8.5); PLATELET COUNT, AUTOMATED 177 10^3/uL (150-450); RED BLOOD COUNT 4.71 10^6/uL (4.00-5.40); WHITE BLOOD COUNT 8.7 10^3/uL (4.0-10.0)
[2022-10-20 16:34] LABS: APPEARANCE, URINE HAZY (CLEAR); BACTERIA, URINE AUTO 2+ (NEGATIVE); BILIRUBIN, URINE AUTO NEGATIVE (NEGATIVE); BLOOD, URINE BLOOD NEGATIVE (NEGATIVE); COLOR, URINE YELLOW (YELLOW); GLUCOSE, URINE (UA) AUTO NEGATIVE (NEGATIVE); KETONE, URINE AUTO NEGATIVE (NEGATIVE); LEUKOCYTE ESTERASE, URINE AUTO NEGATIVE (NEGATIVE); MUCUS, URINE SMALL (NEGATIVE); NITRITE, URINE AUTO NEGATIVE (NEGATIVE); PROTEIN, URINE AUTO NEGATIVE (NEGATIVE); RBC, URINE AUTO 1 /HPF (0-3); SPECIFIC GRAVITY URINE AUTO 1.024 (1.002-1.035); SQUAMOUS EPITHELIAL CELL UR AU 3 /HPF (0-6); WBC, URINE AUTO 1 /HPF (0-3)
[2022-10-20 17:01] LABS: CALCIUM LEVEL 9.3 MG/DL (8.3-10.6); CREATININE FOR GFR 1.18 MG/DL (0.55-1.30); GLOMERULAR FILTRATION RATE 47.7 (>39); POTASSIUM SERUM 4.9 MMOL/L (3.5-5.1)
== END ==
LOC: M WUC 11:28
PROVIDERS: ATTEND Physician Assistant
DX: Z01.818 Encounter for other preprocedural examination (principal)

== ENCOUNTER → 2022-10-21 | Outpatient (REF) | payer BC, MEDICARE, OTHER | LOC: M LABWUC 16:40 | PROVIDERS: ATTEND Physician Assistant | DX: Z01.818 Encounter for other preprocedural examination (principal); N81.4 Uterovaginal prolapse, unspecified ==

== ENCOUNTER → 2023-01-21 | Outpatient (CLI) | payer BC, MEDICARE, OTHER ==
[~2023-01-21] MED LIST changes: +EZET10TA58 PO; -ZETI10TA16 PO
[2023-01-21 17:09] LABS: BASO # 0.1 10^3/uL (0.0-0.2); BASO % 0.8 % (0.0-1.0); EOS # 0.1 10^3/uL (0.0-0.5); EOS % 2.1 % (0.0-3.0); HEMATOCRIT 40.9 % (36.0-47.0); HEMOGLOBIN 13.3 g/dl (12.0-15.5); LYMPH # 1.3 10^3/uL (1.5-5.0); LYMPH % 20.6 % (24.0-44.0); MEAN CORPUSCULAR HEMOGLOBIN 29.2 pg (27.0-33.0); MEAN CORPUSCULAR HGB CONC 32.5 g/dl (32.0-36.5); MEAN CORPUSCULAR VOLUME 89.9 fl (80.0-96.0); MONO # 0.7 10^3/uL (0.0-0.8); MONO % 10.6 % (2.0-8.0); NEUTROPHILS # 4.3 10^3/uL (1.5-8.5); NEUTROPHILS % 65.3 % (36.0-66.0); PLATELET COUNT, AUTOMATED 166 10^3/uL (150-450); RED BLOOD COUNT 4.55 10^6/uL (4.00-5.40); WHITE BLOOD COUNT 6.5 10^3/uL (4.0-10.0)
[2023-01-21 17:20] LABS: C REACTIVE PROTEIN QUANTITATIV 0.6 MG/DL (<1.0)
[2023-01-21 17:23] LABS: ALBUMIN 3.6 G/DL (3.2-5.2); BILIRUBIN,TOTAL 0.5 MG/DL (0.3-1.2); CALCIUM LEVEL 8.7 MG/DL (8.3-10.6); CREATININE FOR GFR 1.2 MG/DL (0.55-1.30); GLOMERULAR FILTRATION RATE 46.8 (>39); POTASSIUM SERUM 4.5 MMOL/L (3.5-5.1); TOTAL PROTEIN 6.2 G/DL (5.7-8.2)
[2023-01-21 18:05] LABS: ERYTHROCYTE SEDIMENTATION RATE 13 mm/hr (0-30)
== END ==
LOC: M WUC 12:09
PROVIDERS: ATTEND Internal Medicine Rheumatology
DX: M33.90 Dermatopolymyositis, unspecified, organ involvement unspecified (principal); Z79.899 Other long term (current) drug therapy; R76.8 Other specified abnormal immunological findings in serum; N18.32 Chronic kidney disease, stage 3b

== ENCOUNTER → 2023-04-02 | Outpatient (CLI) | payer BC, MEDICARE ==
[2023-04-02 10:04] LABS: CALCIUM LEVEL 9.1 MG/DL (8.3-10.6); CREATININE FOR GFR 1.12 MG/DL (0.55-1.30); GLOMERULAR FILTRATION RATE 50.5 (>39); POTASSIUM SERUM 4.5 MMOL/L (3.5-5.1)
== END ==
LOC: M LAB 08:51
PROVIDERS: ATTEND Ophthalmology
DX: H33.011 Retinal detachment with single break, right eye (principal)

== ENCOUNTER → 2023-09-09 | Outpatient (REF) | payer BC, MEDICARE ==
[2023-09-09 12:14] LABS: BASO # 0.1 10^3/uL (0.0-0.2); BASO % 1.1 % (0.0-1.0); EOS # 0.2 10^3/uL (0.0-0.5); HEMATOCRIT 43.2 % (36.0-47.0); HEMOGLOBIN 13.8 g/dl (12.0-15.5); LYMPH # 1.4 10^3/uL (1.5-5.0); LYMPH % 27.4 % (24.0-44.0); MEAN CORPUSCULAR HEMOGLOBIN 29.1 pg (27.0-33.0); MEAN CORPUSCULAR HGB CONC 31.9 g/dl (32.0-36.5); MEAN CORPUSCULAR VOLUME 91.1 fl (80.0-96.0); MONO # 0.6 10^3/uL (0.0-0.8); MONO % 10.6 % (2.0-8.0); NEUTROPHILS % 57.3 % (36.0-66.0); PLATELET COUNT, AUTOMATED 147 10^3/uL (150-450); RED BLOOD COUNT 4.74 10^6/uL (4.00-5.40); WHITE BLOOD COUNT 5.3 10^3/uL (4.0-10.0)
[2023-09-09 12:19] LABS: HEMOGLOBIN A1c 5.2 % (4.0-6.0)
[2023-09-09 12:42] LABS: ALBUMIN 3.7 G/DL (3.2-5.2); BILIRUBIN,TOTAL 0.7 MG/DL (0.3-1.2); CALCIUM LEVEL 9.7 MG/DL (8.3-10.6); CREATININE FOR GFR 1.22 MG/DL (0.55-1.30); FREE T4 1.04 NG/DL (0.89-1.76); GLOMERULAR FILTRATION RATE 45.7 (>39); POTASSIUM SERUM 4.6 MMOL/L (3.5-5.1); TOTAL PROTEIN 6.4 G/DL (5.7-8.2)
[2023-09-09 12:43] LABS: THYROID STIMULATING HORMONE 2.764 uIU/ML (0.55-4.78)
== END ==
LOC: M LABWUC 09:56
PROVIDERS: ATTEND Physician Assistant
DX: E78.5 Hyperlipidemia, unspecified (principal); I25.10 Atherosclerotic heart disease of native coronary artery without angina pectoris; M33.12 Other dermatomyositis with myopathy

== ENCOUNTER → 2023-09-13 | Outpatient (CLI) | payer BC, MEDICARE ==
[~2023-09-13] MED LIST changes: +GASTROGRAFIN SOLUTION 30ML As Ordered ONE; +ISOVUE-370 76% 100ML VIAL As Ordered ONE
== END ==
LOC: M RAD 09:13
PROVIDERS: ATTEND Physician Assistant
DX: Z85.528 Personal history of other malignant neoplasm of kidney (principal); Z90.5 Acquired absence of kidney; K57.30 Diverticulosis of large intestine without perforation or abscess without bleeding; N28.1 Cyst of kidney, acquired; K43.9 Ventral hernia without obstruction or gangrene
CPT/HCPCS: 71260; 74177; Q9963; Q9967

== ENCOUNTER 2023-10-10 11:23 | Day surgery (SDC) | payer BC, MEDICARE, OTHER ==
[~2023-10-10] VITALS: Ht 154.9 cm; Wt 76.1 kg
[~2023-10-10 11:23] MED LIST changes: -GASTROGRAFIN SOLUTION 30ML As Ordered ONE; -ISOVUE-370 76% 100ML VIAL As Ordered ONE; +LR 1,000 ML IV SCH; +MIDAZOLAM INJ 2MG/2ML VIAL As Ordered ONE; +fentaNYL 100 MCG/2 ML INJECTION As Ordered ONE
[2023-10-10] MEDS: ATROPINE SULFATE 1% OPHTH SOLN 2ML BTL OD SCH (12:33)
[2023-10-10] MEDS: TETRACAINE 0.5% OPHTH SOLN 4ML OD SCH (12:34)
[2023-10-10] MEDS: PHENYLEPHRINE 2.5% OPHTH SOL 2ML OD SCH (12:34)
[2023-10-10] MEDS: FLURBIPROFEN 0.03% OPHTH SOLN 2.5 ML OD SCH (12:34)
[2023-10-10] MEDS: LIDOCAINE 1% SDV 5ML VIAL As Ordered ONE (14:01)
[2023-10-10] MEDS: CEFUROXIME 1MG/0.1ML INTRACAMERAL INJ As Ordered ONE (14:03)
[2023-10-10 14:22] VITALS: BP 158/77; TEMP 96.2; O2SAT 96
== END 2023-10-10 14:40 | disposition home or self-care (01) ==
LOC: M SDC 11:23
PROVIDERS: ATTEND Ophthalmology
DX: H25.11 Age-related nuclear cataract, right eye (principal); I10 Essential (primary) hypertension; I25.2 Old myocardial infarction; Z98.61 Coronary angioplasty status; Z79.82 Long term (current) use of aspirin; Z79.899 Other long term (current) drug therapy; G72.49 Other inflammatory and immune myopathies, not elsewhere classified
CPT/HCPCS: 66984; J0697; J2250; J3010; V2632

== ENCOUNTER → 2024-04-09 | Outpatient (CLI) | payer BC, MEDICARE, OTHER ==
[~2024-04-09] MED LIST changes: -BYST10TA2 PO; +BYST1TAB3 PO; -LR 1,000 ML IV SCH; -MIDAZOLAM INJ 2MG/2ML VIAL As Ordered ONE; -fentaNYL 100 MCG/2 ML INJECTION As Ordered ONE
[2024-04-09 11:09] LABS: ALBUMIN 3.8 G/DL (3.2-5.2); BILIRUBIN,DIRECT 0.2 MG/DL (<0.4); BILIRUBIN,TOTAL 0.8 MG/DL (0.3-1.2); CHOLESTEROL RISK RATIO 4.71 (<5); HDL CHOLESTEROL 46.9 MG/DL (>40); LDL CHOLESTEROL 133.3 MG/DL (<100); NON-HDL-C 174.1 MG/DL; TOTAL PROTEIN 6.7 G/DL (5.7-8.2)
== END ==
LOC: M WUC 08:07
PROVIDERS: ATTEND Internal Medicine Cardiovascular Disease
DX: E78.2 Mixed hyperlipidemia (principal)

== ENCOUNTER → 2024-04-09 | Outpatient (CLI) | payer BC, MEDICARE, OTHER ==
[2024-04-09 11:10] LABS: ALBUMIN 3.8 G/DL (3.2-5.2); BASO # 0.1 10^3/uL (0.0-0.2); BASO % 1.4 % (0.0-1.0); BILIRUBIN,TOTAL 0.8 MG/DL (0.3-1.2); CALCIUM LEVEL 9.5 MG/DL (8.3-10.6); CHOLESTEROL RISK RATIO 4.68 (<5); CREATININE FOR GFR 1.29 MG/DL (0.55-1.30); EOS # 0.2 10^3/uL (0.0-0.5); EOS % 4.2 % (0.0-3.0); GLOMERULAR FILTRATION RATE 42.8 (>39); HEMATOCRIT 42.8 % (36.0-47.0); HEMOGLOBIN 14.4 g/dl (12.0-15.5); LYMPH # 1.1 10^3/uL (1.5-5.0); LYMPH % 25.5 % (24.0-44.0); MEAN CORPUSCULAR HEMOGLOBIN 29.3 pg (27.0-33.0); MEAN CORPUSCULAR HGB CONC 33.6 g/dl (32.0-36.5); MEAN CORPUSCULAR VOLUME 87.2 fl (80.0-96.0); MONO # 0.5 10^3/uL (0.0-0.8); MONO % 11.6 % (2.0-8.0); NEUTROPHILS # 2.5 10^3/uL (1.5-8.5); NEUTROPHILS % 57.1 % (36.0-66.0); PLATELET COUNT, AUTOMATED 161 10^3/uL (150-450); POTASSIUM SERUM 4.8 MMOL/L (3.5-5.1); RED BLOOD COUNT 4.91 10^6/uL (4.00-5.40); TOTAL PROTEIN 6.6 G/DL (5.7-8.2); WHITE BLOOD COUNT 4.3 10^3/uL (4.0-10.0)
== END ==
LOC: M WUC 08:04
PROVIDERS: ATTEND Physician Assistant
DX: E78.5 Hyperlipidemia, unspecified (principal); I25.10 Atherosclerotic heart disease of native coronary artery without angina pectoris

== ENCOUNTER → 2024-07-04 | Outpatient (CLI) | payer BC, MEDICARE, OTHER | LOC: M CARPUL 14:38 | PROVIDERS: ATTEND Internal Medicine Rheumatology | DX: M33.90 Dermatopolymyositis, unspecified, organ involvement unspecified (principal); Z79.899 Other long term (current) drug therapy; N18.32 Chronic kidney disease, stage 3b ==

== ENCOUNTER → 2024-07-10 | Outpatient (CLI) | payer BC, MEDICARE, OTHER ==
[2024-07-10 17:44] LABS: LDH LACTATE DEHYDROGENASE 207 U/L (120-246)
[2024-07-10 17:45] LABS: C REACTIVE PROTEIN QUANTITATIV < 0.50 MG/DL (<1.0)
[2024-07-10 17:52] LABS: CPK CREATINE PHOSPHOKINASE 55 U/L (34-145)
== END ==
LOC: M WUC 14:38
PROVIDERS: ATTEND Internal Medicine Rheumatology
DX: M33.90 Dermatopolymyositis, unspecified, organ involvement unspecified (principal); N18.32 Chronic kidney disease, stage 3b; R76.8 Other specified abnormal immunological findings in serum; Z79.899 Other long term (current) drug therapy